=== PATIENT | female | born 1935 | race Caucasian/White ===

== ENCOUNTER 2016-08-17 14:47 | Inpatient (IN) | payer OTHER, MEDICARE ==
[~2016-08-17] VITALS: Ht 154.9 cm; Wt 79.4 kg
[~2016-08-17 14:47] MED LIST: ACETAMINOPHEN/H1 TAB PO; DOCUSATE SODIU100 M3 PO; LEXAPRO10 M1 PO; LIDOCAINE HCL V15 ML PO; NYSTATIN15 G1 TOP; OMEPRAZOLE D/R20 MG PO; OMEPRAZOLE40 MG PO; PREVACID30 M2 PO; PRILOSEC 20MG C20 MG PO; PRILOSEC40 MG PO; ROZEREM8 M1 PO; SLEEP AID25 M2 PO; SYNTHROID50 MCG PO; TRAMADOL HCL50 M1 PO; TRAZODONE HCL50 M1 PO; VICODIN5-300 PO; VITAMIN D2000 UNIT PO; VYVANSE30 M1 PO; XANAX0.25 M1 PO
--- NOTE | 2016-08-17 15:15 | NUR ---
SHANNON WHITAKER PT.
--- NOTE | 2016-08-17 15:19 | NUR ---
81 YEAR OLD FEMALE BIBA FROM DOCTORS OFFICE FOLLOWING MECHANICAL FALL. PT A&OX3, REPORTS 10/10 PAIN TO LEFT WRIST THAT WAS SPLINTED BY ORTHOPEDIC OFFICE. PT ALOS PRESENTS WITH SMALL LAC TO LEFT FOREHEAD. BLEEDING CONTROLLED AT THIS TIME, DENIES BLOOD THINNERS OR LOC.
--- NOTE | 2016-08-17 15:21 | NUR ---
PT TO CAT SCAN VIA STRETCHER AT THIS TIME.
--- NOTE | 2016-08-17 15:21 | ED MVC/FALL/TRAUMA COMPLAINT ---
History of Present Illness General Chief Complaint: Fall Stated Complaint: BIBA WITH A FALL Source: patient Exam Limitations: no limitations Allergies Coded Allergies: diphenhydramine (HYPEREXCITABLE 08/17/16) Triage Nurses Notes Reviewed? yes HPI: This patient is a 81-year-old female who was brought into the emergency department today by ambulance from Dr. Armstrong's office where she was going to get a knee injection. She reported that her knees felt weak and she fell forward mechanically. This fall was unwitnessed. She reported that she landed on her left wrist and left hip. She reported that she didn't hit her head on the ground. She denied any loss of consciousness. She is reporting 10 out of 10 pain in her left wrist and is unable to move her fingers. She reported that she is having some pain in her left hip where she had a hip replacement, however reported that she is able to easily move her left hip. She is denying any head pain, visual changes, neck pain, chest pain, difficulty breathing, abdominal pain, nausea, or vomiting. (OUMAR SUMMERS,CHRIS) Reconcile Medications Cholecalciferol (Vitamin D3) (Vitamin D) 2,000 UNIT TABLET 1 TAB PO DAILY SUPPLEMENT (Reported) Lansoprazole (Prevacid) 30 MG TAB.RAP.DR 1 TAB PO DAILY GI (Reported) Lisinopril 5 MG TABLET 1 TAB PO DAILY BLOOD PRESSURE (Reported) Tramadol HCl 50 MG TABLET 1 TAB PO BIDP PRN PAIN (Reported) (REAGAN DUNCAN,JOSUE) Vital Signs & Intake/Output Vital Signs & Intake/Output Vital Signs Date Time Temp Pulse Resp B/P Pulse O2 O2 Flow FiO2 Ox Delivery Rate 08/19 0603 99.7 78 18 112/60 93 Room Air 08/18 2346 99.3 65 20 114/58 95 Room Air 08/18 1600 Room Air 08/18 1508 98.7 78 20 126/64 94 08/18 1051 98.2 68 20 154/74 94 Room Air 08/18 1041 68 154/74 ED Intake and Output 08/19 0000 08/18 1200 Intake Total 480 525 Output Total 300 600 Balance 180 -75 Intake, IV 525 Intake, Oral 480 0 Number 0 Bowel Movements Output, Urine 300 600 Patient 175 lb Weight Past History Travel History Traveled to [place] past 21 day No Medical History Any Pertinent Medical History? 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 FH: CHF (congestive heart failure) Hx Contributory? No (CHRIS OSEGUERA PA-C) Review of Systems Review of Systems Constitutional: Reports: no symptoms. Eyes: Reports: no symptoms. Ears, Nose, Throat, Mouth: Reports: no symptoms. Respiratory: Reports: no symptoms. Cardiovascular: Reports: no symptoms. Gastrointestinal/Abdominal: Reports: no symptoms. Genitourinary: Reports: no symptoms. Musculoskeletal: Reports: see HPI. Skin: Reports: no symptoms. Neurological/Psychological: Reports: no symptoms. All Other Systems: Reviewed and Negative (CHRIS OSEGUERA PA-C) Physical Exam Physical Exam General Appearance: well developed/nourished, no apparent distress, alert, awake Comments: Well-developed well-nourished person in no acute distress HEENT: Normal EENT exam, head normocephalic/atraumatic with no bony deformity/ possible skull, no tenderness to palpation over the scalp PERRLA bilaterally Neck: Supple, no lymphadenopathy. C-collar in place. No midline tenderness Back: Normal inspection Cardiovascular: Regular rate and rhythm with no murmurs, rubs, or gallops Respiratory: Chest nontender. No respiratory distress. Breath sounds clear to auscultation bilaterally Abdomen: Soft, nontender and nondistended Left upper extremity: No effusions or overlying erythema or ecchymosis to the joint spaces. Bony deformity noted to the wrist. No skin breakdown. Full passive range of motion at the digits. Limited active range of motion of the digits. Tenderness to palpation over the dorsum of the wrist. Capillary refill less than 2 seconds. Radial pulse 2+ Left lower extremity: No effusions overlying erythema or ecchymosis to the 90s. Full range of motion at the hip, knee, and ankle. No tenderness to palpation over the joint spaces were musculature. Dorsalis pedis and posterior tibialis pulses 2+ and strong Neuro: Alert oriented x3, cranial nerves II through XII grossly intact. Skin: No appreciable rash on exposed skin, skin is warm and dry. Psych: Mood and affect is normal Core Measures ACS in differential dx? No Severe Sepsis Present: No Septic Shock Present: No (OUMAR SUMMERS,CHRIS) Progress Differential Diagnosis: aoritic dissection, abd injury, C/T/L spine injury, ext injury, ICH, pelvis injury, pnemothorax, spinal cord injury Diagnostic Imaging: Viewed by Me: Radiology Read, CT Scan. Discussed w/RAD: Radiology Read, CT Scan. Radiology Impression: PATIENT: FEDERICO ANN PRESENT AGE: 81 PATIENT ACCOUNT NO: [id number] : 37 LOCATION: [facility] ([place] ORDERING PHYSICIAN: CHRIS OSEGUERA PA-C SERVICE DATE: 08/17/16 EXAM TYPE: CAT - CT CERV SPINE WO IV CONTRAST; CT HEAD WO IV CONTRAST EXAMINATION: CT HEAD WITHOUT CONTRAST CT CERVICAL SPINE WITHOUT CONTRAST CLINICAL INFORMATION: Fall. COMPARISON: None. TECHNIQUE: Contiguous axial imaging was performed from the skull base to vertex without intravenous administration of contrast. In addition, helical noncontrast CT imaging was acquired through the cervical spine and source images were reviewed along with axial reconstructions and sagittal and coronal MPRs. DLP: 939 mGy-cm FINDINGS: HEAD: There is no hemorrhage, edema, mass effect, hydrocephalus, extra-axial collection, evolving territorial infarct , or shift of the normally midline structures. There is mild generalized prominence of the ventricles, sulci, and extra-axial CSF spaces and mild to moderate scattered hypoattenuation in the periventricular, deep, and subcortical white matter compatible with chronic microangiopathy. No calvarial fractures. The imaged paranasal sinuses, mastoid air cells and middle ear cavities are clear. There is mild soft tissue thickening in the left frontal scalp with 2 small subcutaneous foci of air suggesting a laceration in this locale. The orbits are not ideally visualized due to motion at this level. CERVICAL SPINE: There is no evidence of fracture. There is no evidence of traumatic dislocation. The lateral masses of C1 and C2 articulate normally. The atlantooccipital articulations are maintained. There is no prevertebral soft tissue swelling. There is 1 to 2 mm of anterolisthesis of C2 on C3 which appears to be on a degenerative basis. There is also 2 to 3 mm of anterolisthesis of C7 on T1 which appears to be degenerative. There is slight offset of the spinolaminar line at the C5-C6 level, of uncertain significance. The intervertebral disc space at this level is moderately degenerated and there are endplate spurs and sclerosis. There is no evidence of intervertebral disc widening. Multilevel spondylosis is present at several levels with relative sparing of C2-C3 and C7-T1. There is multilevel mild canal stenosis without high-grade canal stenosis. Multilevel facet hypertrophy is visualized, asymmetric on the left at several levels. There are varying degrees of foraminal stenosis including mild foraminal stenosis on the left at C2-C3, bilaterally at C3-C4 on the left at C4-C5 and bilaterally at C6-C7. At C5-C6 there appears to be fairly high-grade right foraminal stenosis. No cervical adenopathy. The left lobe of the thyroid is not visualized, potentially surgically absent. There is slight nodular fullness in the lower pole of the right lobe, possibly a thyroid nodule. No upper mediastinal adenopathy. The visualized lung apices appear grossly clear. IMPRESSION: 1. No acute intracranial pathology. Mild generalized volume loss and mild to moderate chronic microangiopathy. Left frontal scalp laceration. 2. No CT evidence of acute cervical spine fracture or traumatic subluxation. No pre or paravertebral soft tissue swelling. Multilevel spondylosis with grade 1 degenerative anterolisthesis of C2 on C3 and C7 on T1. There is mild offset of the spinolaminar line at C5-C6, also suspected to be on a degenerative basis. DICTATED BY: BETSY MURO MD DATE/TIME DICTATED:08/17/161552 ACID CRANE OPERATOR:MORELIA DATE/TIME TRANSCRIBED:08/17/161552 CONFIDENTIAL, DO NOT COPY WITHOUT APPROPRIATE AUTHORIZATION. <Electronically signed in Other Vendor System> SIGNED BY: BETSY MURO MD 08/17/16 1609, PATIENT: FEDERICO ANN PRESENT AGE: 81 PATIENT ACCOUNT NO: [id number] : 37 LOCATION: [facility] ([place] ORDERING PHYSICIAN: CHRIS OSEGUERA PA-C SERVICE DATE: 08/17/16 EXAM TYPE: RAD - XRY-HIP 2-3 VIEWS, LEFT; XRY-WRIST COMPLETE -LEFT EXAMINATION: LEFT HIP AND LEFT WRIST CLINICAL INFORMATION: Fall with pain COMPARISON: Portable abdomen study of November 19, 2015 TECHNIQUE: AP pelvis and two- view left hip. Three-view left wrist. FINDINGS: AP film of the pelvis demonstrates severe degenerative change of the lower lumbar spine. No definite diastases of the fracture is seen. Patient is status post left total hip arthroplasty. There is a comminuted fracture involving the greater trochanter with approximately 4 mm of superior displacement of the trochanteric fracture fragment. Medullary aixa portion of the prosthesis is intact and in place. No dislocation of the total hip prosthesis is identified. There are comminuted displaced fractures of the distal left radius and ulna. The radial fracture is intra-articular with displacement of the distal fracture fragments dorsally by approximately 1.5 cm and with overriding of the fracture fragments of approximately 1.2 cm. The distal ulnar fracture is intra-articular with displacement of fracture fragments dorsally as well as overriding of fracture fragments by approximately 1 cm with lateral displacement of the ulna styloid fracture fragment. IMPRESSION: Comminuted, displaced, intra-articular fractures of the distal left radius and ulnar as described. Left proximal femoral greater trochanter fracture without evidence of dislocation of left total hip arthroplasty. DICTATED BY: LASHAWN WASHINGTON MD DATE/TIME DICTATED:08/17/161709 ACID CRANE OPERATOR:MORELIA DATE/TIME TRANSCRIBED:08/17/161709 CONFIDENTIAL, DO NOT COPY WITHOUT APPROPRIATE AUTHORIZATION. <Electronically signed in Other Vendor System> SIGNED BY: LASHAWN WASHINGTON MD 08/17/161749, PATIENT: FEDERICO ANN PRESENT AGE: 81 PATIENT ACCOUNT NO: [id number] : 37 LOCATION: [facility] ([place] ORDERING PHYSICIAN: CHRIS OSEGUERA PA-C SERVICE DATE: 08/17/16 EXAM TYPE: RAD - XRY-WRIST COMPLETE-LEFT EXAMINATION : XR WRIST, LEFT CLINICAL INFORMATION: Wrist fracture. COMPARISON: Original presentation film at 4:18 PM today. Follow-up examination at 6:45 PM in a splint. TECHNIQUE: AP, lateral, and oblique views of the left wrist in a splint FINDINGS: Reexamination shows posterior displacement of the distal radial fragment one shaft width. There is also some overriding at the fracture site. There is less radial displacement of the distal radial fragment. The ulnar fracture is difficult to assess. IMPRESSION: Further reduction in the fractures involving the distal aspects of the left radius and ulna. DICTATED BY: OLIVIER CASTRO MD DATE/TIME DICTATED:08/17/162129 ACID CRANE OPERATOR:MORELIA DATE/ TIME TRANSCRIBED:08/17/162129 CONFIDENTIAL, DO NOT COPY WITHOUT APPROPRIATE AUTHORIZATION. <Electronically signed in Other Vendor System> SIGNED BY: OLIVIER CASTRO MD 08/17/162137 Initial ED EKG: normal axis, normal intervals, LBBB, no ST T wave changes, 67 bpm Comments: 08/17/2016 4:23:53 PM: I received a call from on-call orthopedist, Dr. Justice. She reported that she saw the image that was taken at Dr. Armstrong's office, but reported that the brace was still on and it was not a very good image. She also reported that he did not reduce it for sending her to the ER. She reported that if need be, she can come in and reduce the wrist herself. 08/17/2016 6:12:20 PM: Spencer Garvin MD is currently at the patient's bedside for reduction of the patient's wrist fracture. 08/17/2016 7:00:49 PM: Spencer Gravin MD reported that the reduction was not completely successful. He reported that Dr. Justice is going to come in to try the reduction again, but this patient may need to go to the operating room for pins. 08/17/2016 7:48:27 PM: Orthopedist, Dr. Justice, is currently at the patient's bedside. She is going to try traction for manual reduction. I spoke to on-call hospitalist, Dr. Ogden who reported that she will consult on this patient that there is no medical reason for admission to medicine. (OUMAR SUMMERS,CHRIS) Plan of Care: Orders Procedure Date/time Status Device(s) 08/19 0055 Active Regular Diet 08/18 L Active Activity/Ambulation 08/18 UNK Active Current Medications Sig/Azar Start time Last Medication Dose Stop Time Status Admin Morphine Sulfate 2 MG Q4P PRN 08/170 AC (Morphine) Ondansetron HCl 4 MG Q6P PRN 08/170 AC (Zofran) Departure Departure Disposition: STILL A PATIENT Condition: Stable Clinical Impression Primary Impression: Radius fracture Qualifiers: Encounter type: initial encounter Radius location: distal Fracture type: closed Fracture morphology: unspecified fracture morphology Laterality: left Qualified Code: S52.502A - Unspecified fracture of the lower end of left radius, initial encounter for closed fracture Secondary Impressions: Greater trochanter fracture Qualifiers: Encounter type: initial encounter Fracture type: closed Fracture alignment: nondisplaced Laterality: left Qualified Code: S72.115A - Nondisplaced fracture of greater trochanter of left femur, initial encounter for closed fracture Ulnar fracture Qualifiers: Encounter type: initial encounter Ulna location: distal Fracture type: closed Fracture morphology: unspecified fracture morphology Laterality: left Qualified Code: S52.602A - Unspecified fracture of lower end of left ulna, initial encounter for closed fracture Referrals: GERDA HOOD MD (PCP/Family) Departure Forms: Customer Survey General Discharge Information Admission Note Spoke With: RACHEL JUSTICE MD Documentation of Exam: Documentation of any treatments & extenuating circumstances including Concerns Regarding Discharge (functional status, medication knowledge or non-compliance, living conditions, etc.) that warrant an admission rather than observation: [ This patient is a 81 year old female who lives at home alone with no assistance. She has had two prior total hip replacements and today, before she fell, was in her orthopedist's office for an injection in her knee. Her history of having weakness in her knees is what precipitated her fall today. With this history of gait instability, it would be a poor medical decision to send this patient home with a new right wrist fracture and new greater trochanter fracture. She has been unable to tolerate weight-bearing here in the emergency department and would be unable to abmbulate with a walker given her current wrist fracture. She will be unable to perform basic ADLs at this time and does not have help at home. She will need an orthopedic consult, possible MRI of the hip, pain management, PT consultation, case management consultation, fall percautions. In current condition, she is unsafe at home. Premature discharge could prove medically harmful.] (OUMAR SUMMERS,CHRIS) PA/HAT BLOCKING OPERATOR Co-Sign Statement Statement: ED Attending supervision documentation- [X] I saw and evaluated the patient. I have also reviewed all the pertinent lab results and diagnostic results. I agree with the findings and the plan of care as documented in the PA's/HAT BLOCKING OPERATOR's documentation. [X] I have reviewed the ED Record and agree with the PA's/HAT BLOCKING OPERATOR's documentation. [] Additions or exceptions (if any) to the PAs/HAT BLOCKING OPERATOR's note and plan are summarized below: [] (REAGAN DUNCAN,JOSUE) PA/HAT BLOCKING OPERATOR Co-Sign Statement Statement: ED Attending supervision documentation- [] I saw and evaluated the patient. I have also reviewed all the pertinent lab results and diagnostic results. I agree with the findings and the plan of care as documented in the PA's/HAT BLOCKING OPERATOR's documentation. [x] I have reviewed the ED Record and agree with the PA's/HAT BLOCKING OPERATOR's documentation. [] Additions or exceptions (if any) to the PAs/HAT BLOCKING OPERATOR's note and plan are summarized below: [] (LUIS ENRIQUE DUNCAN,ROSEANNE Dimas) Procedures Splinting Location: left wrist Manual Alignment Performed: Yes Hand-Made Type: orthoglass Splint: sugar-tong Splint Applied By: splint applied by other (dr garvin) Pre-Proc Neuro Vasc Exam: normal Post-Proc Neuro Vasc Exam: normal Progress: I assisted Dr. Garvin in manual reduction. Patient tolerated the procedure well. (OUMAR SUMMERS,CHRIS) General Discharge Information Admission Note Spoke With: RACHEL JUSTICE MD Documentation of Exam: Documentation of any treatments & extenuating circumstances including Concerns Regarding Discharge (functional status, medication knowledge or non-compliance, living conditions, etc.) that warrant an admission rather than observation: [ This patient is a 81 year old female who lives at home alone with no assistance. She has had two prior total hip replacements and today, before she fell, was in her orthopedist's office for an injection in her knee. Her history of having weakness in her knees is what precipitated her fall today. With this history of gait instability, it would be a poor medical decision to send this patient home with a new right wrist fracture and new greater trochanter fracture. She has been unable to tolerate weight-bearing here in the emergency department and would be unable to abmbulate with a walker given her current wrist fracture. She will be unable to perform basic ADLs at this time and does not have help at home. She will need an orthopedic consult, possible MRI of the hip, pain management, PT consultation, case management consultation, fall percautions. In current condition, she is unsafe at home. Premature discharge could prove medically harmful.] (CHRIS OSEGUERA PA-C) PA/HAT BLOCKING OPERATOR Co-Sign Statement Statement: ED Attending supervision documentation- [X] I saw and evaluated the patient. I have also reviewed all the pertinent lab results and diagnostic results. I agree with the findings and the plan of care as documented in the PA's/HAT BLOCKING OPERATOR's documentation. [X] I have reviewed the ED Record and agree with the PA's/HAT BLOCKING OPERATOR's documentation. [] Additions or exceptions (if any) to the PAs/HAT BLOCKING OPERATOR's note and plan are summarized below: [] (REAGAN DUNCAN,JOSUE) PA/HAT BLOCKING OPERATOR Co-Sign Statement Statement: ED Attending supervision documentation- [] I saw and evaluated the patient. I have also reviewed all the pertinent lab results and diagnostic results. I agree with the findings and the plan of care as documented in the PA's/HAT BLOCKING OPERATOR's documentation. [x] I have reviewed the ED Record and agree with the PA's/HAT BLOCKING OPERATOR's documentation. [] Additions or exceptions (if any) to the PAs/HAT BLOCKING OPERATOR's note and plan are summarized below: [] (LUIS ENRIQUE DUNCAN,ROSEANNE Dimas) Procedures Splinting Location: left wrist Manual Alignment Performed: Yes Hand-Made Type: orthoglass Splint: sugar-tong Splint Applied By: splint applied by other (dr garvin) Pre-Proc Neuro Vasc Exam: normal Post-Proc Neuro Vasc Exam: normal Progress: I assisted Dr. Garvin in manual reduction. Patient tolerated the procedure well. (CHRIS OSEGUERA PA-C)
--- NOTE | 2016-08-17 15:57 | NUR ---
PT CRYING REPORTSING INCREASE IN PAIN TO LEFT WRIST. IV PLACED TO RIGHT HAND AND MEDICATED WITH MORPHINE 2MG PER EMAR. PT CRYING AND MOANING OUT IN PAIN. THERAPEUTIC COMMUNICATION AT THIS TIME TO ENCOURAGE PT TO SLOW BREATHING AND RELAX SO PAIN MEDICATION CAN BE MOST EFFECTIVE. PT ABLE TO CALM DOWN, ICE PACK PROVIDED AND PT WRIST ELEVATED ON BLANKETS FOR COMFORT. SPLINT FROM ARRICAL REMAINS IN PLACE.
--- NOTE | 2016-08-17 16:09 | CT SCAN REPORT ---
EXAMINATION: CT HEAD WITHOUT CONTRAST CT CERVICAL SPINE WITHOUT CONTRAST CLINICAL INFORMATION: Fall. COMPARISON: None. TECHNIQUE: Contiguous axial imaging was performed from the skull base to vertex without intravenous administration of contrast. In addition, helical noncontrast CT imaging was acquired through the cervical spine and source images were reviewed along with axial reconstructions and sagittal and coronal MPRs. DLP: 939 mGy-cm FINDINGS: HEAD: There is no hemorrhage, edema, mass effect, hydrocephalus, extra-axial collection, evolving territorial infarct, or shift of the normally midline structures. There is mild generalized prominence of the ventricles, sulci, and extra-axial CSF spaces and mild to moderate scattered hypoattenuation in the periventricular, deep, and subcortical white matter compatible with chronic microangiopathy. No calvarial fractures. The imaged paranasal sinuses, mastoid air cells and middle ear cavities are clear. There is mild soft tissue thickening in the left frontal scalp with 2 small subcutaneous foci of air suggesting a laceration in this locale. The orbits are not ideally visualized due to motion at this level. CERVICAL SPINE: There is no evidence of fracture. There is no evidence of traumatic dislocation. The lateral masses of C1 and C2 articulate normally. The atlantooccipital articulations are maintained. There is no prevertebral soft tissue swelling. There is 1 to 2 mm of anterolisthesis of C2 on C3 which appears to be on a degenerative basis. There is also 2 to 3 mm of anterolisthesis of C7 on T1 which appears to be degenerative. There is slight offset of the spinolaminar line at the C5-C6 level, of uncertain significance. The intervertebral disc space at this level is moderately degenerated and there are endplate spurs and sclerosis. There is no evidence of intervertebral disc widening. Multilevel spondylosis is present at several levels with relative sparing of C2-C3 and C7-T1. There is multilevel mild canal stenosis without high-grade canal stenosis. Multilevel facet hypertrophy is visualized, asymmetric on the left at several levels. There are varying degrees of foraminal stenosis including mild foraminal stenosis on the left at C2-C3, bilaterally at C3-C4 on the left at C4-C5 and bilaterally at C6-C7. At C5-C6 there appears to be fairly high-grade right foraminal stenosis. No cervical adenopathy. The left lobe of the thyroid is not visualized, potentially surgically absent. There is slight nodular fullness in the lower pole of the right lobe, possibly a thyroid nodule. No upper mediastinal adenopathy. The visualized lung apices appear grossly clear. IMPRESSION: 1. No acute intracranial pathology. Mild generalized volume loss and mild to moderate chronic microangiopathy. Left frontal scalp laceration. 2. No CT evidence of acute cervical spine fracture or traumatic subluxation. No pre or paravertebral soft tissue swelling. Multilevel spondylosis with grade 1 degenerative anterolisthesis of C2 on C3 and C7 on T1. There is mild offset of the spinolaminar line at C5-C6, also suspected to be on a degenerative basis.
--- NOTE | 2016-08-17 16:19 | NUR ---
CERVICAL COLLAR REMOVED BY SHANNON OSEGUERA AT THIS TIME. PT REPORTS RELIEF IN PAIN, RESTING COMFORTABLY ON STRETCHER.
--- NOTE | 2016-08-17 17:16 | NUR ---
PT REPORTS INCREASE IN PAIN, MEDICATED PER EMAR.
--- NOTE | 2016-08-17 17:50 | RADIOLOGY REPORT ---
EXAMINATION: LEFT HIP AND LEFT WRIST CLINICAL INFORMATION: Fall with pain COMPARISON: Portable abdomen study of November 19, 2015 TECHNIQUE: AP pelvis and two-view left hip. Three-view left wrist. FINDINGS: AP film of the pelvis demonstrates severe degenerative change of the lower lumbar spine. No definite diastases of the fracture is seen. Patient is status post left total hip arthroplasty. There is a comminuted fracture involving the greater trochanter with approximately 4 mm of superior displacement of the trochanteric fracture fragment. Medullary aixa portion of the prosthesis is intact and in place. No dislocation of the total hip prosthesis is identified. There are comminuted displaced fractures of the distal left radius and ulna. The radial fracture is intra-articular with displacement of the distal fracture fragments dorsally by approximately 1.5 cm and with overriding of the fracture fragments of approximately 1.2 cm. The distal ulnar fracture is intra-articular with displacement of fracture fragments dorsally as well as overriding of fracture fragments by approximately 1 cm with lateral displacement of the ulna styloid fracture fragment. IMPRESSION: Comminuted, displaced, intra-articular fractures of the distal left radius and ulnar as described. Left proximal femoral greater trochanter fracture without evidence of dislocation of left total hip arthroplasty.
--- NOTE | 2016-08-17 18:54 | NUR ---
DR. SONG TO BEDSIDE FOR CLOSED REDUCTION.
--- NOTE | 2016-08-17 19:32 | RADIOLOGY REPORT ---
EXAMINATION: 3 views of the left wrist CLINICAL INFORMATION: Status post reduction. COMPARISON: Left wrist radiographs from 08/17/2016. FINDINGS: Interval splint placement. Redemonstration of comminuted intra-articular fractures of the distal radius and ulna. On the lateral view there is similar significant dorsal displacement of the distal intra-articular fracture fragments with relation to the remaining radius and ulna by approximately a shaft width. Proximal migration of the proximal radius and ulna which now closely oppose the level of the lunate on the lateral view. On the frontal view there is new severe radial displacement of the distal intra-articular fracture fragments with respect to the more proximal ulna and radius by approximately the shaft width. IMPRESSION: Interval splint placement in the setting of comminuted intra-articular fractures of the distal radius and ulna. New significant radial displacement of the distal intra-articular fracture fragments, similar dorsal displacement of the distal intra-articular fracture fragments, and worsening proximal migration of the proximal fracture fragments with associated overriding.
--- NOTE | 2016-08-17 19:54 | NUR ---
DR. JUSTICE TO BEDSIDE FOR EVAL.
--- NOTE | 2016-08-17 21:13 | NUR ---
DR. JUSTICE TO BEDSIDE TO DISCUSS RESULTS FROM MOST RECENT X-RAY. PT VERBALIZES UNDERSTANDING THAT SHE WILL BE ADMITTED TO [facility] WITH PLAN TO GO TO THE OR TOMORROW.
--- NOTE | 2016-08-17 21:30 | NUR ---
BLOOD DRAWN AND SENT TO LAB. SST,LAV,POOLE,BLUE,PINK. URINE SENT TO LAB.
--- NOTE | 2016-08-17 21:38 | RADIOLOGY REPORT ---
EXAMINATION: XR WRIST, LEFT CLINICAL INFORMATION: Wrist fracture. COMPARISON: Original presentation film at 4:18 PM today. Follow-up examination at 6:45 PM in a splint. TECHNIQUE: AP, lateral, and oblique views of the left wrist in a splint FINDINGS: Reexamination shows posterior displacement of the distal radial fragment one shaft width. There is also some overriding at the fracture site. There is less radial displacement of the distal radial fragment. The ulnar fracture is difficult to assess. IMPRESSION: Further reduction in the fractures involving the distal aspects of the left radius and ulna.
[2016-08-17 21:39] LABS: ABSOLUTE BASOPHIL COUNT 0.1 /CUMM (0.0-0.2); ABSOLUTE EOSINOPHIL COUNT 0.3 /CUMM (0.0-0.7); ABSOLUTE GRANULOCYTE CT 9.5 /CUMM (1.4-6.5); ABSOLUTE LYMPH COUNT 2.3 /CUMM (1.2-3.4); ABSOLUTE MONOCYTE COUNT 0.8 /CUMM (0.10-0.60); BASOPHIL % 0.5 % (0.0-2.0); EOSINOPHIL % 2.3 % (0-5); GRANULOCYTE % 73.6 % (42.2-75.2); HEMATOCRIT 38.1 % (37-47); MEAN CORPUSCULAR HGB CONC 33.4 G/DL (33.0-37.0); MEAN CORPUSCULAR VOLUME 92.7 FL (81.0-99.0); MEAN PLATELET VOLUME 8.5 FL (7.4-10.4); PLATELET COUNT 239 /CUMM (130-400); RBC DISTRIBUTION WIDTH 14.4 % (11.5-14.5); RED BLOOD CELL CT 4.12 /CUMM (4.20-5.40); WHITE BLOOD CELL COUNT 12.9 /CUMM (4.8-10.8)
--- NOTE | 2016-08-17 22:02 | Cons- Medical ---
SCAR DUNCAN,KARLA 08/17/16 2159: General Information and HPI Consulting Request Date of Consult: 08/17/16 Requested By: Dr. Ritchie Reason for Consult: Medical condition co-management Source of Information: patient, old records History of Present Illness: 81 yo female with pmh of HTN, GERD, peptic ulcer disease, osteoarthritis, hypothyroidism, hx of gastric outlet obstruction s/p gastrojejunostomy (2015), hx of bowel perforation s/p exploratory laparotomy & Ricco patch/washout complicated with septic shock (2016) BIBA from Dr. Armstrong's office s/p mechanical fall. She had a corticosteroid injection on Rt. knee, then she felt weak falling down to Lt. wrist and Lt. hip. She denies any chest pain, palpitation, or dizziness related to fall. She denies any head trauma or loss of consciousness. In ED, she was found to have communited, displaced, intra- articular fracutres of distal Lt. radius/ulnar & Lt. proximal femoral fracutre without evidence of dislocation of Lt. total hip arthroplasty. Closed reduction for Lt. radius & ulnar was attempted by Dr. Garvin and Dr. Ritchie. After IV morphine, her pain was decreased, and she now has dull aching pain on Lt. wrist. She c/o Lt. leg muscle pain. Regarding HTN, she takes lisinopril 5mg daily. Her last echocardiogram on showed normal EF > 60% with stage 1 diastolic dysfuction. She doens't take any po lasix which was discontiued by storage specialist (Dr. Soriano). She had two 3mm lung nodues in Rt. lung (02/21/16), and she'll follow Dr. Shipman in 1 year. She didn't take levothyroxine, as her last TSH/fT4 were normal. She follows Dr. Armstrong for osteoarthritis/corticosteroid injection. She doesn't take xanax or lexapro for depression currently. Allergies/Medications Allergies: Coded Allergies: diphenhydramine (HYPEREXCITABLE 08/17/16) Home Med List: Cholecalciferol (Vitamin D3) (Vitamin D) 2,000 UNIT TABLET 1 TAB PO DAILY SUPPLEMENT (Reported) Lansoprazole (Prevacid) 30 MG TAB.RAP.DR 1 TAB PO DAILY GI (Reported) Lisinopril 5 MG TABLET 1 TAB PO DAILY BLOOD PRESSURE (Reported) Tramadol HCl 50 MG TABLET 1 TAB PO BIDP PRN PAIN (Reported) Current Medications: Current Medications Sig/Azar Start time Last Medication Dose Route Stop Time Status Admin Cholecalciferol 1,000 IU DAILY 08/18 1000 UNVr PO Dextrose/Sodium 1,000 ML Q13H 08/17 2300 UNVr Chloride IV Lidocaine 20 ML ONCE ONE 08/17 1815 DC 08/17 ID 08/17 181 1822 Lidocaine 0 .STK-MED ONE 08/17 181 DC .ROUTE Morphine Sulfate 0 .STK-MED ONE 08/17 231 DC .ROUTE Morphine Sulfate 2 MG Q4P PRN 08/17 230 UNVr IV Morphine Sulfate 4 MG ONCE PRN 08/17 230 UNVr 08/17 IV 2318 Morphine Sulfate 2 MG ONCE ONE 08/17 2030 DC 08/17 IV 08/17 Morphine Sulfate 0 .STK-MED ONE 08/17 2022 DC .ROUTE Morphine Sulfate 2 MG ONCE ONE 08/17 1715 DC 08/17 IV 08/17 1716 1715 Morphine Sulfate 0 .STK-MED ONE 08/17 1712 DC .ROUTE Morphine Sulfate 2 MG ONCE ONE 08/17 1600 CAN IM 08/17 1601 Morphine Sulfate 2 MG ONCE ONE 08/17 1600 DC 08/17 IV 08/17 1601 1600 Morphine Sulfate 0 .STK-MED ONE 08/17 1556 DC .ROUTE Omeprazole 40 MG DAILY AC 08/18 0700 UNVr PO Ondansetron HCl 4 MG Q6P PRN 08/17 2300 UNVr IV Oxycodone/ 0 .STK-MED ONE 08/17 1516 DC Acetaminophen PO Oxycodone/ 1 TAB ONCE ONE 08/17 1515 DC 08/17 Acetaminophen PO 08/17 1516 1514 Tetanus/Diphtheria 0.5 ML ONCE ONE 08/17 1845 DC 08/17 Toxoids Adsorbed IM 08/17 1846 2318 Tramadol HCl 50 MG .[BIDP] PRN 08/17 2215 UNVr PO Tramadol HCl 0 .STK-MED ONE 08/17 1511 DC PO Tramadol HCl 50 MG ONCE ONE 08/17 1500 CAN PO 08/17 1501 Trazodone HCl See Dose AT BEDTIME PRN 08/17 2230 UNVr Insts (1) PO Dose Instructions: (1)Trazodone HCl: 1-2 MG Review of Systems Review of Systems Constitutional: Denies: chills, fever, weakness. EENTM: Denies: blurred vision, visual changes, throat pain. Cardiovascular: Denies: chest pain, palpitations, peripheral edema, syncope. Respiratory: Denies: cough, short of breath, sputum production, wheezing. GI: Denies: abdominal pain, constipation, diarrhea, nausea, vomiting. Genitourinary: Reports: no symptoms. Musculoskeletal: Reports: see HPI, joint pain, muscle pain. Skin: Reports: no symptoms. Neurological/Psychological: Denies: anxiety, depressed, headache, numbness, tingling, weakness. Hematologic/Endocrine: Reports: no symptoms. Immunologic/Allergic: Reports: no symptoms. 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 FH: CHF (congestive heart failure) Psychosocial History Services at Home: None Primary Language: [place] Islander Functional Ability ADLs Independent: dressing, eating, toileting, bathing. Ambulation: independent IADLs Independent: housework, medication admin. ECHO Results (as available) Date of last Echo 10/16/15 EF% 60 Exam & Diagnostic Data Last 24 Hrs of Vital Signs/I&O Vital Signs Date Time Temp Pulse Resp B/P Pulse O2 O2 Flow FiO2 Ox Delivery Rate 08/17 2228 97.8 68 18 162/84 96 Room Air 08/17 1849 97.5 75 18 153/78 97 08/17 1516 98.7 61 63 157/70 95 Physical Exam General Appearance: no apparent distress, alert, awake, comfortable Head: blood streak on lip Eyes: Bilateral: normal appearance, PERRL, EOMI. Ears, Nose, Throat: normal pharynx, hearing grossly normal, dry mouth Neck: supple, full range of motion Respiratory: normal breath sounds, no respiratory distress, lungs clear Cardiovascular: regular rate/rhythm Extremities: limited range of motion, s/p Lt. arm splint Neurologic/Psych: awake, alert, oriented x 3 Cranial Nerves: normal hearing, normal speech, PERRL Skin: intact, normal color, warm/dry Last 24 Hrs of Labs/Giovanni: Laboratory Tests 08/17/16 2126: Anion Gap 8, Estimated GFR > 60, BUN/Creatinine Ratio 54.0 H, Glucose 96, Calcium 9.5, Total Bilirubin 0.7, AST 18, ALT 26, Alkaline Phosphatase 119, Troponin I < 0.01, Total Protein 6.0 L, Albumin 3.5, Globulin 2.5, Albumin/ Globulin Ratio 1.4, TSH 2.150, Free T4 1.03, CBC w Diff NO MAN DIFF REQ, RBC 4.12 L, MCV 92.7, MCH 31.0, RDW 14.4, MPV 8.5, Gran % 73.6, Lymphocytes % 17.5 L, Monocytes % 6.1, Eosinophils % 2.3, Basophils % 0.5, Absolute Granulocytes 9.5 H, Absolute Lymphocytes 2.3, Absolute Monocytes 0.8 H, Absolute Eosinophils 0.3, Absolute Basophils 0.1, PUBS MCHC 33.4, Urine Color YEL, Urine Clarity HAZY H, Urine pH 6.0, Ur Specific Freeland 1.025, Urine Protein NEG, Urine Ketones NEG, Urine Nitrite POS H, Urine Bilirubin NEG, Urine Urobilinogen 0.2, Ur Leukocyte Esterase NEG, Ur Microscopic SEDIMENT EXAMINED, Urine WBC 1-3 H, Ur Epithelial Cells FEW, Urine Bacteria PACKD H, Urine Mucus FEW, Urine Hemoglobin NEG, Urine Glucose NEG Diagnostic Data EKG Results Sinus rhythm, LAD, 1st degree AV block, QTc 503, old LBBB CXR Results No acute abnormality of chest. Other Results Head/cervical spine CT: 1. No acute intracranial pathology. Mild generalized volume loss and mild to moderate chronic microangiopathy. Left frontal scalp laceration. 2. No CT evidence of acute cervical spine fracture or traumatic subluxation. No pre or paravertebral soft tissue swelling. Multilevel spondylosis with grade 1 degenerative anterolisthesis of C2 on C3 and C7 on T1. There is mild offset of the spinolaminar line at C5-C6, also suspected to be on a degenerative basis. Lt. wrist x-ray: Comminuted, displaced, intra-articular fractures of the distal left radius and ulnar as described. Lt. hip x-ray: Left proximal femoral greater trochanter fracture without evidence of dislocation of left total hip arthroplasty. Assessment/Plan Assessment/Plan 81 yo female with pmh of HTN, GERD, peptic ulcer disease, osteoarthritis, hypothyroidism, hx of gastric outlet obstruction s/p gastrojejunostomy (2015), hx of bowel perforation s/p exploratory laparotomy & Ricco patch/washout complicated with septic shock (2016) presented with Lt. radius/ulnar & Lt. proximal femoral fracutre s/p mechanical fall. 1. Lt. radius/ulnar & Lt. proximal femoral fracutre s/p mechanical fall: Pt is planned to get Lt. radius/ulnar closed reduction per orthopedic surgery in am. Lt. proximal femoral fracutre will be managed conservatively without surgery. RCRI score is 0 with 0.4% perioperative cardiac risk. NPO after MN, continue IV hydration/pain control. Dr. Alcantar spoke with Dr. Vernon regarding pulmonary evaluation. There is no need for pre-op pulmonary evaluation, and CXR was not remarkable. If pt needs post-operative management, please contact Dr. Vernon. 2. HTN: c/w lisinopril 5mg daily 3. GERD: c/w omeprazole, GI ppx. 4. Hypothyroidism: TSH/fT4 within normal limit. continue hold levothyroxine. 5. Hx of Fall: avoid fall risk, PT/OT. 6. Depression/anxiety: pt doesn't take home medication currently. 7. Lung nodules: follow up Dr. Shipman as outpatient. DVT ppx: Alps now, SC heparin or lovenox postop. Pt is full code. Pain pathway pre/post operatively. Problem List: 1. Radius fracture 2. Ulnar fracture 3. Greater trochanter fracture 4. Hypertension 5. GERD (gastroesophageal reflux disease) Copies To: BRITTANIE DUNCAN,Danny VELÁZQUEZ; VINH DUNCAN,RACHEL; SANA DUNCAN,GERDA Montoya; LINNEA DUNCAN, KOJO SORIANO MD PhD,GERDA Rene; JORDI DUNCAN,AGUILA Consult Acknowledgment - Thank you for your consult request. LINNEA DUNCAN, JAMAAL 08/18/16 0215: Assessment/Plan Consult Acknowledgment - Thank you for your consult request. Attending MD Review Statement Attending Statement Attending MD Statement: examined this patient, discuss w/resident/PA/DRUM CLEANER, agreed w/resident/PA/DRUM CLEANER Attending Assessment/Plan: 81 yo F with h/o HTN, GERD, PUD, OA, gastrojejunostomy for gastric outlet obstruction, with an extensive hospitalization at [place] (10/15/15 11/23/15) for bowel perforation/ septic shock c/b respiratory failure/ ARDS requiring prolonged intubation with subsequent tracheostomy, is here s/p mechanical fall at Dr. Armstrong's office where she was scheduled for cortisone injection to her right knee. She sustained a left comminuted displaced distal radio-ulnar fracture and left minimally displaced greater trochanter fracture. Patient underwent 2 attempts at closed reduction at the bedside, but still not aligned. Plan is for closed reduction, possible percutaneous fixation of the distal radius fracture. Medicine consult is being sought for pre-op clearance and medical co-management. Patient has not followed with Dr. Soriano for a nuclear stress test - given family h/o premature coronary artery disease in her father and chronic LBBB on EKG. Patient currently denies chest pain, dyspnea, palpitations or lightheadedness. Patient also follows Dr. Shipman for evidence of lung nodules and groundglass opacities which seem to be improving. VSS. Labs: WBC 12.9, INR 1.01, BUN 27, trop neg, TSH/ free T4 normal. UA positive. EKG: SR with chronic LBBB. CT head/cervical spine neg. Echo (October 2015): EF >60% with stage 1 diastolic dysfunction. 1. Mechanical fall with resultant left wrist and hip fracture. Patient admitted to Surgical service. Plan is for closed reduction, possible percutaneous fixation of the distal radius fracture in the OR under adequate analgesia. NPO after midnight, IV fluids, pain management. Based on RCRI, she has no risk factors (no h/o ischemic heart disease, CHF, CVA, DM or CKD) placing her at 0.4% risk of significant cardiac event jasbir-operatively. It would be reasonable to proceed to the OR if the above risk is acceptable to the patient and surgeon. I spoke with Dr. Vernon (covering [employer]), who reviewed patient's CT scan and outpatient office visit with Dr. Shipman. CXR today does not show any acute changes. No pre-op Pulmonary eval required at this point. Above has been discussed overnight with Surgical PA Jennie Haney. If any concerns regarding respiratory status post-operatively, plan is to contact Dr. Vernon; otherwise if patient stable she could follow up with Dr. Shipman as outpatient. For the left hip fracture, plan is pain management and WBAT. Eventual PT/OT eval and possible placement. 2. Hypertension. Continue lisinopril daily. 3. GERD. Continue PPI. 4. Leukocytosis likely reactive. DVT ppx Alps, no heparin for now. Code status: This was discussed in depth with the patient. During the last admission (2015), she had expressed her wishes/ signed a statement for DNR/I. However, given that she got a second chance last year, she now wishes to be "Full code" unless she suffers an irreversible event then she wishes to be DNR/ I.
--- NOTE | 2016-08-17 22:05 | NUR ---
HOUSE STAFF AT BEDSIDE FOR PT EVALUATION
--- NOTE | 2016-08-17 22:59 | NUR ---
SURGICAL PA TO BEDSIDE FOR EVAL.
--- NOTE | 2016-08-17 23:29 | NUR ---
PT ATE SOME APPLESAUCE AND DRANK SOME WATER. PT AWARE OF NPO STATUS AT MIDNIGHT. IV FLUIDS D5 1/2 NS HUNG PER EMAR AT THIS TIME.
--- NOTE | 2016-08-17 23:43 | NUR ---
ASSUMED PRIMARY CARE OF PT. PT DENIES PAIN AT THIS TIME EXCEPT WITH MOVEMENT OF FINGERS ON L HAND. +CMS. SWELLING NOTED TO L FINGERS. PT DENIES NUMBNESS/TINGLING. DAUGHTER AT BEDSIDE. INFORMED WAITING REGARDING ADMISSION PROCESS PROVIDED.
--- NOTE | 2016-08-18 | History & Physical Pre-Op ---
See Addendum MARK ORTEGASYLVIA 08/17/16 3747: General Information and HPI MD Statement: I have seen and personally examined FEDERICO ANN and documented this H&P. The patient is a 81 year old F who presented with a patient stated chief complaint of FALL. 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 Pt states that she was scheduled for a steroid injection by Dr. Armstrong in her R knee today. On her way into the exam room, she lost her balance and fell to the floor. She states that Dr. Armstrong's medical sales representative was nearby and that she recalls the entire event. She c/o R wrist pain and had an obvious deformity. She also suffered a minor superficial laceration of the L frontal scalp, which did not require repair. Steroid injection was ultimately NOT performed today. She denies dizziness, chest pain, or other precipitating symptoms. She also denies LOC. Subsequent x-rays performed in the ED revealed a proximal L greater trochanter fracture and a comminuted, displaced distal radius/ulna fracture. The previous L total hip arthroplasty hardware was unaffected. Pt underwent 2 attempts at closed reduction at the bedside, with ultimate positioning still not completely ideal. At this time, she continues to complain only of L wrist pain. The wrist is splinted. She denies hip pain whatsoever. Allergies/Medications Allergies: Coded Allergies: diphenhydramine (HYPEREXCITABLE 08/17/16) Home Med list Cholecalciferol (Vitamin D3) (Vitamin D) 2,000 UNIT CAPSULE 1 CAP PO DAILY supplement Docusate Sodium 100 MG CAPSULE 10 MG PO BID PRN CONSTIPATION Lansoprazole (Prevacid) 30 MG TAB.RAP.DR 1 TAB PO DAILY GI (Reported) Levothyroxine Sodium (Synthroid) 50 MCG TABLET 0.05 MG PO DAILY AC HYPOTHYROID REPEAT TSH IN 7 IN WEEKS Tramadol HCl 50 MG TABLET 1 TAB PO BIDP PRN PAIN (Reported) Trazodone HCl 50 MG TABLET 1-2 MG PO AT BEDTIME PRN sleep (Reported) Past History Medical History Neurological: NONE EENT: cataracts Cardiovascular: hypertension Respiratory: NONE Gastrointestinal: GERD, peptic ulcer disease Hepatic: NONE Renal: NONE Musculoskeletal: osteoarthritis Psychiatric: NONE Endocrine: NONE Blood Disorders: NONE Cancer(s): NONE 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 , abdominoplasty, facelift Past Family/Social History Family History Relations & Conditions if any MOTHER FH: stomach cancer FATHER ([place] - age 53). FH: CHF (congestive heart failure) Psychosocial History Where Do You Live? Home Services at Home None Primary Language: [place] Citizen Review of Systems Review of Systems: Positive for L wrist pain. Negative for headache, dizziness, fever, chills, chest pain, shortness of breath , cough, congestion, abdominal pain, nausea, vomiting, diarrhea, constipation, dysuria. Exam & Diagnostic Data Last 24 Hrs of Vital Signs/I&O Vital Signs Date Time Temp Pulse Resp B/P Pulse O2 O2 Flow FiO2 Ox Delivery Rate 08/17 2228 97.8 68 18 162/84 96 Room Air 08/17 1849 97.5 75 18 153/78 97 08/17 1516 98.7 61 63 157/70 95 Physical Exam: General: Pt is awake and alert. NAD. HEENT: There is a 4 cm superficial laceration in the L frontal area, which contains a small amount of old, dry blood. No active bleeding or evidence of underlying soft tissue swelling. PERRLA. EOM's are intact. Tongue is midline. CN are grossly intact. Mouth and lips are dry and peeling. Cardiac: Regular Pulmonary: Lungs are CTA bilaterally. Abdomen: There is an old, well healed midline laparotomy incision and an old, well healed lower abdominoplasty incision. There is some weakness noted at the inferior aspect of the midline incision. No openings, erythema or drainage. Abdomen is moderately distended, but soft and nontender. Normoactive BS were heard. Ext: LUE is splinted. Fingers are swollen, as expected. She is able to move her fingers and sensation is intact. LE are warm and without significant edema or calf tenderness. 2+ pedal pulses appreciated. No tenderness noted in LE, including over greater trochanter. Last 24 Hrs of Labs/Giovanni: Laboratory Tests 08/17/162125: Anion Gap 8, Estimated GFR > 60, BUN/Creatinine Ratio 54.0 H, Glucose 96, Calcium 9.5, Total Bilirubin 0.7, AST 18, ALT 26, Alkaline Phosphatase 119, Troponin I < 0.01, Total Protein 6.0 L, Albumin 3.5, Globulin 2.5, Albumin/ Globulin Ratio 1.4, TSH 2.150, Free T4 1.03, CBC w Diff NO MAN DIFF REQ, RBC 4.12 L, MCV 92.7, MCH 31.0, RDW 14.4, MPV 8.5, Gran % 73.6, Lymphocytes % 17.5 L, Monocytes % 6.1, Eosinophils % 2.3, Basophils % 0.5, Absolute Granulocytes 9.5 H, Absolute Lymphocytes 2.3, Absolute Monocytes 0.8 H, Absolute Eosinophils 0.3, Absolute Basophils 0.1, PUBS MCHC 33.4, Urine Color YEL, Urine Clarity HAZY H, Urine pH 6.0, Ur Specific [place] 1.025, Urine Protein NEG, Urine Ketones NEG, Urine Nitrite POS H, Urine Bilirubin NEG, Urine Urobilinogen 0.2, Ur Leukocyte Esterase NEG, Ur Microscopic SEDIMENT EXAMINED, Urine WBC 1-3 H, Ur Epithelial Cells FEW, Urine Bacteria PACKD H, Urine Mucus FEW, Urine Hemoglobin NEG, Urine Glucose NEG Diagnostic Data Other Results CT scan of head and C-spine: 1. No acute intracranial pathology. Mild generalized volume loss and mild to moderate chronic microangiopathy. Left frontal scalp laceration. 2. No CT evidence of acute cervical spine fracture or traumatic subluxation. No pre or paravertebral soft tissue swelling. Multilevel spondylosis with grade 1 degenerative anterolisthesis of C2 on C3 and C7 on T1. There is mild offset of the spinolaminar line at C5-C6, also suspected to be on a degenerative basis. X-ray of the Hip and wrist upon admission: Comminuted, displaced, intra-articular fractures of the distal left radius and ulnar. Left proximal femoral greater trochanter fracture without evidence of dislocation of left total hip arthroplasty. here is severe degenerative change of the first carpal metacarpal joint with loss of joint space, spurring with subchondral cyst formation, and what appears to be some mild collapse of the trapezium. Post reduction xray of L wrist: Interval splint placement in the setting of comminuted intra-articular fractures of the distal radius and ulna. New significant radial displacement of the distal intra-articular fracture fragments, similar dorsal displacement of the distal intra-articular fracture fragments, and worsening proximal migration of the proximal fracture fragments with associated overriding. Repeat post-reduction x-ray after 2nd reduction: Reexamination shows posterior displacement of the distal radial fragment one shaft width. There is also some overriding at the fracture site. There is less radial displacement of the distal radial fragment. The ulnar fracture is difficult to assess. 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 Plan: -Admit to Dr. Justice on gen med as medical team states that there are no acute medical issues. -Plan for possible closed reduction in the OR tomorrow morning. -Pt will be kept npo after midnight. OK to eat/drink something tonight before midnight. Will start IVF. -Pain control with morphine as needed. -PT/OT consult after the OR for discharge recommendations. She may weight bear as tolerated on the LLE. -Alps for DVT ppx. Hold anticoagulation for surgery (anticipated in less than 12 hours) and then will start SC heparin postop. -Home meds have been ordered by the medical team. -Awaiting clearance for OR, although verbal clearance from attending hospitalist has already been obtained. -This was discussed with the patient and with Dr. Justice and all are in agreement. -Of note, I had a lengthy discussion with the patient about her code status. She states that she has a living will that says DNR/DNI, but that she is grateful that her life was saved during her last admission. She wishes to keep her status DNR/DNI, stating that she does not want to live as "an invalid" if there is ever a chance of that. Other measures can be taken at saving her life if her condition appears to be reversible and not debilitating. As Ranked By This Provider Problem List: 1. Radius fracture 2. Ulnar fracture 3. Greater trochanter fracture RACHEL JUSTICE MD 08/17/16 0033: Attending MD Review Statement Attending Statement Attending MD Statement: examined this patient, discuss w/resident/PA/FIELD SALES SPECIALIST, agreed w/resident/PA/FIELD SALES SPECIALIST, discussed with family, reviewed images Attending Assessment/Plan: 81yo RHD female with left comminuted displaced distal radius fracture and left minimally displaced greater trochanter fracture adjacent to [place]. Plan for closed reduction and possible percutaneous stabilization vs open reduction and internal fixation of left distal radius in the OR as described. Plan for closed management of left greater trochanter periprosthetic fracture ( Kaycee A-G) with partial weight bearing and PT evaluation. Please see my prior consult note.
--- NOTE | 2016-08-18 | Admission Core Measures ---
Admission Lab Results I reviewed the following labs: Laboratory Tests 08/17 2125 Chemistry Sodium (137 - 145 mmol/L) 138 Potassium (3.5 - 5.1 mmol/L) 4.7 Chloride (98 - 107 mmol/L) 105 Carbon Dioxide (22 - 30 mmol/L) 24 Anion Gap (5 - 16) 8 BUN (7 - 17 mg/dL) 27 H Creatinine (0.5 - 1.0 mg/dL) 0.5 Estimated GFR (>60 ml/min) > 60 BUN/Creatinine Ratio (7 - 25 %) 54.0 H Glucose (65 - 99 mg/dL) 96 Calcium (8.4 - 10.2 mg/dL) 9.5 Total Bilirubin (0.2 - 1.3 mg/dL) 0.7 AST (14 - 36 U/L) 18 ALT (9 - 52 U/L) 26 Alkaline Phosphatase (<127 U/L) 119 Troponin I (< 0.11 ng/ml) < 0.01 Total Protein (6.3 - 8.2 g/dL) 6.0 L Albumin (3.5 - 5.0 g/dL) 3.5 Globulin (1.9 - 4.2 gm/dL) 2.5 Albumin/Globulin Ratio (1.1 - 2.2 %) 1.4 TSH (0.270 - 4.200 uIU/mL) 2.150 Free T4 (0.78 - 2.44 ng/dL) 1.03 Hematology CBC w Diff NO MAN DIFF REQ WBC (4.8 - 10.8 /CUMM) 12.9 H RBC (4.20 - 5.40 /CUMM) 4.12 L Hgb (12.0 - 16.0 G/DL) 12.8 Hct (37 - 47 %) 38.1 MCV (81.0 - 99.0 FL) 92.7 MCH (27.0 - 31.0 PG) 31.0 RDW (11.5 - 14.5 %) 14.4 Plt Count (130 - 400 /CUMM) 239 MPV (7.4 - 10.4 FL) 8.5 Gran % (42.2 - 75.2 %) 73.6 Lymphocytes % (20.5 - 51.1 %) 17.5 L Monocytes % (1.7 - 9.3 %) 6.1 Eosinophils % (0 - 5 %) 2.3 Basophils % (0.0 - 2.0 %) 0.5 Absolute Granulocytes (1.4 - 6.5 /CUMM) 9.5 H Absolute Lymphocytes (1.2 - 3.4 /CUMM) 2.3 Absolute Monocytes (0.10 - 0.60 /CUMM) 0.8 H Absolute Eosinophils (0.0 - 0.7 /CUMM) 0.3 Absolute Basophils (0.0 - 0.2 /CUMM) 0.1 PUBS MCHC (33.0 - 37.0 G/DL) 33.4 Urines Urine Color (YEL,AMB,STR) YEL Urine Clarity (CLEAR) HAZY H Urine pH (5.0 - 8.0) 6.0 Ur Specific [place] (1.001 - 1.035) 1.025 Urine Protein (NEG,<30 MG/DL) NEG Urine Ketones (NEG) NEG Urine Nitrite (NEG) POS H Urine Bilirubin (NEG) NEG Urine Urobilinogen (0.1 - 1.0 EU/dl) 0.2 Ur Leukocyte Esterase (NEG) NEG Ur Microscopic SEDIMENT EXAMINED Urine WBC (0 - 2 /HPF) 1-3 H Ur Epithelial Cells (NONE,FEW) FEW Urine Bacteria (NEG/NONE) PACKD H Urine Mucus (FEW,NONE) FEW Urine Hemoglobin (NEG) NEG Urine Glucose (N MG/DL) NEG Admission Meds I reviewed the following Meds: Current Medications Sig/Azar Start time Last Medication Dose Stop Time Status Admin Cholecalciferol 1,000 IU DAILY 08/18 1000 UNVr (Vitamin D) Morphine Sulfate 2 MG Q4P PRN 08/17 230 UNVr (Morphine) Morphine Sulfate 2 MG ONCE ONE 08/17 1600 CAN (Morphine) 08/17 1601 Omeprazole 40 MG DAILY AC 08/18 0700 UNVr (Prilosec) Ondansetron HCl 4 MG Q6P PRN 08/17 2300 UNVr (Zofran) Tramadol HCl 50 MG .[BIDP] PRN 08/17 2215 UNVr (Ultram) Tramadol HCl 50 MG ONCE ONE 08/17 1500 CAN (Ultram) 08/17 1501 Trazodone HCl See Dose AT BEDTIME PRN 08/17 2230 UNVr (Desyrel) Insts (1) Dose Instructions: (1)Trazodone HCl (Desyrel): 1-2 MG Acute Coronary Syndrome Inclusion Criteria ACS Diagnosis No Inpatient Core Measures LDL Reminder: If No, please order W/I first 24hr of stay Congestive Heart Failure Inclusion Criteria CHF Diagnosis No Cerebrovascular accident Inclusion Criteria CVA/TIA Diagnosis No Inpatient Core Measures Bedside Swallow Eval Reminder: If BSE failed, place ST order Antithrombotic Reminder: Order Antithrombotic Medication by end of day 2 Antithrombotic Reminder: Document Reason Antithrombotic Not ordered by end of day 2 AFIB/Flutter Reminder: If Present, add to problem list AFIB/Flutter Reminder: Order Anticoag Medication for pts with AFIB/Flutter Atherosclerosis Reminder: If Present, add to problem list LDL Reminder: If No, please order W/I first 24hr of stay PT Order Reminder: If No, please order Venous thromboembolism Inpatient Core Measures VTE Risk Factors: Acute medical illness, Age > 40, Surgery [facility] prophylaxis d/t No contraindications No VTE Pharm Prophylaxis d/t Surgical contraindication Inclusion Criteria - Per Current guidelines, there needs to be overlap - treatment for the first 5 days of Warfarin therapy. - Parenteral Anticoagulation (IV or SC) needs to be - given along with Warfarin therapy. VTE Diagnosis No VTE Type NONE VTE Confirmed by (Test) NONE Problem List As ranked by this Provider includes Assessment & Plan 1. Greater trochanter fracture 2. Ulnar fracture 3. Radius fracture HOME MEDS Home Med List Cholecalciferol (Vitamin D3) (Vitamin D) 2,000 UNIT CAPSULE 1 CAP PO DAILY supplement Docusate Sodium 100 MG CAPSULE 10 MG PO BID PRN CONSTIPATION Lansoprazole (Prevacid) 30 MG TAB.RAP.DR 1 TAB PO DAILY GI (Reported) Levothyroxine Sodium (Synthroid) 50 MCG TABLET 0.05 MG PO DAILY AC HYPOTHYROID Tramadol HCl 50 MG TABLET 1 TAB PO BIDP PRN PAIN (Reported) Trazodone HCl 50 MG TABLET 1-2 MG PO AT BEDTIME PRN sleep (Reported)
--- NOTE | 2016-08-18 00:09 | NUR ---
BED ASSIGNMENT 230-1
--- NOTE | 2016-08-18 00:15 | Cons- Orthopedic ---
See Addendum General Information and HPI Consulting Request Date of Consult: 08/17/16 Requested By: Lanie Mendez Reason for Consult: Left displaced distal radius fracture Left greater trochanteric hip fracture s/p DAY[place] Source of Information: patient, old records History of Present Illness: 81yo RHD female presents to ED with left wrist pain and left thigh pain. She was seen earlier today for her right knee in Dr. Armstrong's orthopaedic clinic. She had a fall in the exam room, striking her head and landing on the left side of her body. Small laceration to her head but denies loss of consciousness, headache, or neck pain. Pain and deformity of the left wrist but denies numbness or tingling in the hand. Left hip pain with attempted abduction of the leg, but reports only soreness in the thigh at rest. Allergies/Medications Allergies: Coded Allergies: diphenhydramine (HYPEREXCITABLE 08/17/16) Home Med List: Cholecalciferol (Vitamin D3) (Vitamin D) 2,000 UNIT CAPSULE 1 CAP PO DAILY supplement Docusate Sodium 100 MG CAPSULE 10 MG PO BID PRN CONSTIPATION Lansoprazole (Prevacid) 30 MG TAB.RAP.DR 1 TAB PO DAILY GI (Reported) Levothyroxine Sodium (Synthroid) 50 MCG TABLET 0.05 MG PO DAILY AC HYPOTHYROID REPEAT TSH IN 7 IN WEEKS Tramadol HCl 50 MG TABLET 1 TAB PO BIDP PRN PAIN (Reported) Trazodone HCl 50 MG TABLET 1-2 MG PO AT BEDTIME PRN sleep (Reported) Past History Medical History Neurological: NONE EENT: NONE (s/p extraction), cataracts Cardiovascular: hypertension Respiratory: NONE Gastrointestinal: GERD, peptic ulcer disease Hepatic: NONE Renal: NONE Musculoskeletal: osteoarthritis Psychiatric: NONE Endocrine: NONE Blood Disorders: NONE Cancer(s): 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 FH: CHF (congestive heart failure) Psychosocial History Services at Home: None Primary Language: French Functional Ability ADLs Independent: dressing, eating, toileting, bathing. Ambulation: independent IADLs Independent: housework, medication admin. Exam & Diagnostic Data Vital Signs and I&O Vital Signs Date Time Temp Pulse Resp B/P Pulse O2 O2 Flow FiO2 Ox Delivery Rate 08/178 97.8 68 18 162/84 96 Room Air 08/17 1849 97.5 75 18 153/78 97 08/17 1516 98.7 61 63 157/70 95 Intake & Output 08/18 0800 08/18 0000 08/17 1600 08/17 0800 08/17 0000 08/16 1600 Intake Total Output Total 350 Balance -350 Output, Urine 350 Physical Exam: Alert, oriented, in no acute distress. Small laceration over the left top of the scalp; clean and dry. No active bleeding. Nontender to palpation of right upper and lower extremities. Moving right arm and right leg without difficulty. LUE: No tenderness over the left shoulder and elbow. Intact shoulder abduction/ adduction and elbow flexion/extension without pain. Deformity, ecchymosis, and swelling of the left wrist consistent with known fracture. Pain with attempted wrist range of motion. Intact finger flexion/extension and thumb flexion/ extension. Fingers warm with brisk cap refill. Sensation intact to light touch in median, ulnar, and radial nerve distributions without numbness or tingling. LLE: No tenderness over left knee, calf, ankle, or foot. Mild tenderness over the anterior and lateral thigh. No pain with active flexion/extension of the left hip. Pain with resisted abduction of the left hip. Sensation intact to light touch in sural, saphenous, sup peroneal, deep peroneal, and tibial nerve distributions. Foot warm, well-perfused. Imaging Results: XR left wrist: Comminuted, displaced, intra-articular fractures of the distal left radius and ulnar as described. XR left hip: Left proximal femoral greater trochanter fracture without evidence of dislocation of left total hip arthroplasty. Other Results: PROCEDURE: Hematoma block and attempted closed reduction and splinting performed in the ED by Dr. Garvin. Second attempt at reduction performed by me in the ED using finger traps. IV medication administered for analgesia; patient tolerated well but with pain. Improved AP alignment s/p reduction, however continued dorsal displacement of distal radius fracture. Assessment/Plan Assessment/Plan 81yo RHD female present with left comminuted displaced distal fracture fracture and left minimally displaced greater trochanter fracture around [place]. The patient is now s/p two attempts at closed reduction of the left distal radius in the ED; improvement in alignment but persistent dorsal displacement of the distal fragment. Neurovascularly intact but persistent pain in the left wrist. - Plan for closed reduction, possible percutaneous fixation, of the distal radius fracture in the operating room with adequate analgesia and fluoroscopy. - Discussed risks and benefits of further intervention with patient, who would like to proceed with improved stabilization of the wrist. - Medical evaluation prior to further intervention in the OR. - NPO after midnight - Hold anticoagulation pending further intervention - IV fluids, GI prophylaxis. - Resume home medications. Minimal discomfort of the left hip at this time, although pain with resisted abduction. - Plan for mobilization with physical therapy, WBAT LLE; no active hip abduction. - Will assess for safety, independence to determine d/c home vs SNF. - Pain control Consult Acknowledgment - Thank you for your consult request. Attending MD Review Statement Attending Statement Attending MD Statement: examined this patient, discussed with family, reviewed images
--- NOTE | 2016-08-18 00:48 | NUR ---
REPORT TO GEOVANNA HENRY ON 2NA.
[2016-08-18 00:52] LABS: PT 10.6 SEC (9.4-12.5)
[2016-08-18] MEDS ORDERED: LISINOPRIL5 M1 PO (00:59)
[2016-08-18] MEDS ORDERED: ESCITALOPRAM OX10 MG PO (01:00)
[2016-08-18] MEDS ORDERED: SYNTHROID50 MCG PO ×2 (01:03→01:04)
[2016-08-18] MEDS ORDERED: VITAMIN D2000 UNIT PO (01:05)
[2016-08-18] MEDS ORDERED: VITAMIN D2000 UNI1 PO (01:21)
[2016-08-18 01:28] VITALS: BP 138/80
--- NOTE | 2016-08-18 02:20 | RADIOLOGY REPORT ---
EXAMINATION: XR PORTABLE CHEST CLINICAL INFORMATION: Preop. COMPARISON: Chest x-ray 11/15/2015 TECHNIQUE: Portable AP portable view of the chest was obtained. 2:02 AM FINDINGS: The previously seen tracheostomy catheter no longer present. No acute change of chest. Lungs are clear. No pulmonary vascular congestion. No infiltrate or pleural effusion. The heart size is normal. The cardiac and mediastinal contours are normal. There are calcifications of the thoracic aorta. There are multilevel degenerative changes of dorsal spine. Severe arthropathy of the right glenohumeral joint with remodeling of the bone joint space narrowing subchondral sclerosis and spurring of both humeral head and glenoid. Moderate degenerative joint disease also of the left glenohumeral joint with joint narrowing and spurring. IMPRESSION: No acute abnormality of chest.
--- NOTE | 2016-08-18 02:21 | NUR ---
NURSING NOTE: PT ARRIVED TO [facility] VIA STRETCHER @ 4245. PT A&O X3, CALM, AND COOPERATIVE. STATING ACHING PAIN 3/10 - TOLERABLE PER PT. IVF RUNNING PER ORDER. PT REQUESTING BED PAIN TO VOID. EDEMA/ECCYMOTIC LUE - CAST IN PLACE. ADMISSION ASSESSMENT COMPLETED. PT ORIENTED TO STAFF, ROOM, AND CALL MURRIETA. RN WILL CONTINUE TO MONITOR.
[2016-08-18 06:30] VITALS: BP 124/70
--- NOTE | 2016-08-18 08:59 | NUR ---
Physical Therapy: Consult received and chart reviewed. Pt currently MNAOJ for surgical intervention of L wrist. Will follow up tomorrow as appropriate for IE. THank you.
--- NOTE | 2016-08-18 09:43 | PN- Orthopedic ---
See Addendum Subjective Subjective: Patient seen examined this morning. Reports pain in the left wrist but otherwise comfortable. No issues overnight; she has been NPO Objective Vital Signs and I&Os Vital Signs Date Time Temp Pulse Resp B/P Pulse O2 O2 Flow FiO2 Ox Delivery Rate 08/18 0630 99.2 85 20 124/70 95 Room Air 08/18 0216 97 Room Air 08/18 0128 98.8 75 18 138/80 97 Room Air 08/17 2228 97.8 68 18 162/84 96 Room Air 08/17 1849 97.5 75 18 153/78 97 08/17 1516 98.7 61 63 157/70 95 Intake & Output 08/18 1600 08/18 0808/18 0000 08/17 1600 08/17 0000 Intake Total 525 Output Total 600 350 Balance -75 -350 Intake, IV 525 Intake, Oral 0 Number 0 Bowel Movements Output, Urine 600 350 Patient 175 lb Weight Physical Exam: Alert, awake, no distress. LUE: splint in place, swelling of distal fingers. Able to actively flex fingers to form fist; pain in wrist with active extension. Sensation intact to light touch over fingers and thumb, denies numbness and tingling. Finger warm with brisk cap refill LLE: No tenderness over left hip or greater trochanter. No abrasions or ecchymosis. No pain with passive log roll of left leg. Sensation intact to light touch over left lower leg/feet, denies numbness or tingling. Assessment/Plan Assessment/Plan 81yo F with left displaced distal radius fracture and left minimally displaced periprosthetic greater trochanter fracture s/p fall. Plan for OR today for sedation and closed reduction vs closed reduction and percutaneous stabilization of left distal radius fracture. NPO for procedure; IV fluids. Pain control. Hold anticoagulation; SCDs while in bed. Resume home meds after procedure. Left hip: stable-appearing [place] prosthesis on exam; minimal pain. Plan for protected partial weight-bearing, mobilization with physical therapy today. Avoid active abduction. Dispo pending procedure and mobilization with physical therapy. Core Measures/Miscellaneous Venous Thromboembolism VTE Risk Factors: Age > 40, Immobility, paresis VTE Contraindications: No Contraindications VTE Diagnosis: No VTE Type: NONE VTE Confirmed by (Test): NONE Beta Manish Is Beta Manish a Home Med? No Antibiotics Is Patient on Antibiotics? No Attending MD Review Statement Attending Statement Attending MD Statement: examined this patient, reviewed images
[2016-08-18 10:51] VITALS: BP 154/74
--- NOTE | 2016-08-18 10:52 | NUR ---
PT ARRIVED BACK TO FLOOR FROM OR AT 1040; VSS; + CMS; A/OX3; L ARM RADHA WRAPPED WITH SLING IN PLACE; COMPLAINTS OF PAIN IN THE L ARM; ADMINISTERED PAIN MEDICATION ORDERED; WILL CONTINUE TO MONITOR.
--- NOTE | 2016-08-18 12:44 | PN- Att Addend ---
Attending Addendum Attending Brief Note Patient seen and examined, came back from the procedure. Procedure note is not in to clarify exactly what kind of procedure she had. She now has been Rik wrap around her left upper extremities which is in a sling. She feels comfortable and denies any current pain. Vital Signs Date Time Temp Pulse Resp B/P Pulse O2 O2 Flow FiO2 Ox Delivery Rate 08/18 1051 98.2 68 20 154/74 94 Room Air 08/18 1041 68 154/74 08/18 0630 99.2 85 20 124/70 95 Room Air 08/18 0216 97 Room Air 08/18 0128 98.8 75 18 138/80 97 Room Air 08/17 2228 97.8 68 18 162/84 96 Room Air 08/17 1849 97.5 75 18 153/78 97 08/17 1516 98.7 61 63 157/70 95 on exam; aox3, nad. cv; s1,s2, + sytolic murmur. resp; clear b/l abd; soft, nt, bs+ ext; no edema. Laboratory Tests 08/18 08/17 0600 2126 Chemistry Sodium (137 - 145 mmol/L) 138 Potassium (3.5 - 5.1 mmol/L) 4.7 Chloride (98 - 107 mmol/L) 105 Carbon Dioxide (22 - 30 mmol/L) 24 Anion Gap (5 - 16) 8 BUN (7 - 17 mg/dL) 27 H Creatinine (0.5 - 1.0 mg/dL) 0.5 Estimated GFR (>60 ml/min) > 60 BUN/Creatinine Ratio (7 - 25 %) 54.0 H Glucose (65 - 99 mg/dL) 96 Calcium (8.4 - 10.2 mg/dL) 9.5 Total Bilirubin (0.2 - 1.3 mg/dL) 0.7 AST (14 - 36 U/L) 18 ALT (9 - 52 U/L) 26 Alkaline Phosphatase (<127 U/L) 119 Troponin I (< 0.11 ng/ml) < 0.01 Total Protein (6.3 - 8.2 g/dL) 6.0 L Albumin (3.5 - 5.0 g/dL) 3.5 Globulin (1.9 - 4.2 gm/dL) 2.5 Albumin/Globulin Ratio (1.1 - 2.2 %) 1.4 TSH (0.270 - 4.200 uIU/mL) 2.150 Free T4 (0.78 - 2.44 ng/dL) 1.03 Coagulation PT (9.4 - 12.5 SEC) 10.6 INR (0.90 - 1.19) 1.01 APTT Cancelled Hematology CBC w Diff NO MAN DIFF REQ WBC (4.8 - 10.8 /CUMM) 12.9 H RBC (4.20 - 5.40 /CUMM) 4.12 L Hgb (12.0 - 16.0 G/DL) 12.8 Hct (37 - 47 %) 38.1 MCV (81.0 - 99.0 FL) 92.7 MCH (27.0 - 31.0 PG) 31.0 RDW (11.5 - 14.5 %) 14.4 Plt Count (130 - 400 /CUMM) 239 MPV (7.4 - 10.4 FL) 8.5 Gran % (42.2 - 75.2 %) 73.6 Lymphocytes % (20.5 - 51.1 %) 17.5 L Monocytes % (1.7 - 9.3 %) 6.1 Eosinophils % (0 - 5 %) 2.3 Basophils % (0.0 - 2.0 %) 0.5 Absolute Granulocytes (1.4 - 6.5 /CUMM) 9.5 H Absolute Lymphocytes (1.2 - 3.4 /CUMM) 2.3 Absolute Monocytes (0.10 - 0.60 /CUMM) 0.8 H Absolute Eosinophils (0.0 - 0.7 /CUMM) 0.3 Absolute Basophils (0.0 - 0.2 /CUMM) 0.1 PUBS MCHC (33.0 - 37.0 G/DL) 33.4 Urines Urine Color (YEL,AMB,STR) YEL Urine Clarity (CLEAR) HAZY H Urine pH (5.0 - 8.0) 6.0 Ur Specific [place] (1.001 - 1.035) 1.025 Urine Protein (NEG,<30 MG/DL) NEG Urine Ketones (NEG) NEG Urine Nitrite (NEG) POS H Urine Bilirubin (NEG) NEG Urine Urobilinogen (0.1 - 1.0 EU/dl) 0.2 Ur Leukocyte Esterase (NEG) NEG Ur Microscopic SEDIMENT EXAMINED Urine WBC (0 - 2 /HPF) 1-3 H Ur Epithelial Cells (NONE,FEW) FEW Urine Bacteria (NEG/NONE) PACKD H Urine Mucus (FEW,NONE) FEW Urine Hemoglobin (NEG) NEG Urine Glucose (N MG/DL) NEG Assessment and recommendations: 81 y/o F with pmh sig for HTN, GERD, peptic ulcer disease, osteoarthritis, hypothyroidism, hx of gastric outlet obstruction s/p gastrojejunostomy (2015), hx of bowel perforation s/p exploratory laparotomy & Ricco patch/washout complicated with septic shock (2016), admitted with a mechanical fall and found to have communited, displaced, intra-articular fracutres of distal Lt. radius/ ulnar. She also had left proximal femoral greater trochanter fracture without evidence of dislocation of left total hip arthroplasty. Patient was taken to operating room today with Dr. Vo for the fixation off radial and ulnar fracture. Trochanteric fracture of the left femur is to be treated conservatively. Currently patient feels well. Denies any pain. Her blood pressure is slightly high but she is ordered lisinopril which likely will bring her blood pressure down. High blood pressure could be due to stress, procedure as well as pain. Her pain management is ordered with the tramadol as well as morphine. I will leave the DVT prophylaxis up to orthopedics. Patient needs physical therapy evaluation. Thank you very much will follow along with you.
[2016-08-18 15:08] VITALS: BP 126/64
--- NOTE | 2016-08-18 19:08 | Operative Report ---
Operative/Inv Procedure Report Surgery Date: 08/18/16 Name of Procedure: Closed reduction of left displaced distal radius fracture Pre-Operative Diagnosis: Left dorsally-displaced distal radius fracture Post-Operative Diagnosis: Left displaced distal radius fracture Estimated Blood Loss: none Surgeon/Hand Frame Surgical Elastic Knitter: RACHEL JUSTICE MD Anesthesia: moderate sedation Complications: None Condition: Stable Operative/Procedure Note Note: INDICATION FOR PROCEDURE: Ria Rivero is a 81 year-old right hand dominant female who presented to the [facility] on 08/17/2016. She was at her orthopaedic surgeon's clinic for evaluation of her right knee when she fell in the examination room. Denies loss of consciousness, but she did hit her head and landed on her left hand and left hip. She was transported to the ER and found to have a significantly displaced left distal radius fracture and a minimally displaced periprosthetic greater trochanter fracture (prior total hip arthroplasty in 2013). She was neurovascularly intact. An attempt at reduction of the left distal radius fracture was performed by Dr. Garvin in the ED, approximately 4 hours after her injury, with a hematoma block. Post-reduction xrays did not show improvement in alignment. A second attempt at reduction was performed by me using finger traps and ligamentotaxis. The reduction resulting in improvement in length but persistent dorsal displacement of the distal fracture fragment. After discussing the risks and benefits of additional attempts at reduction, the patient opted to proceed with closed reduction with possible percutaneous pin stabilization in the operating room. PROCEDURE NOTE: Ria Rivero was brought to the operating room on 08/18/2016. She was met in the pre-operative area, where her left hand was marked and her consent was reviewed. She was then brought into the operating room and places supine on the OR table. The left upper extremity was supported by a dedicated hand table. Sequential compression devices were applied to bilateral lower legs. A time-out procedure was performed, in which the patient, the fractured extremity, and the procedure were reviewed. No jasbir-operative antibiotics were administered but were available should we need to proceed with an invasive procedure. The patient was given moderate sedation. The splint was removed from the left upper extremity. The hand and wrist were swollen and ecchymotic, but the skin was intact. Fluoroscopic images of the wrist were obtained to verify the current position of fracture. The wrist was placed under gentle traction and the fracture was palpated. The fracture was then reduced by recreating the deforming force and pusing the distal fragment from posterior to anterior while traction was maintained. Fluoroscopic images showed improvement in alignment on the AP and lateral views, and the fracture did not appear overly unstable with movement of the arm and wrist. Manipulation of the wrist resulted in two small superificial skin tears. The tears were dressed with xeroform and the arm wrapped with webril from elbow to palm. A plaster sugartong splint was applied and a 3-point mold applied to the wrist, with emphasis over the distal radius fracture fragement. After the splint hardedned, additional images were obtained that revealed maintenance fo the fracture alignment. At this time, I opted to continue with closed treatment of the fracture without pinning, but will continue to monitor closely for displacement. Given her age, bone quality, and non-dominant wrist, we may accept some malreduction in favor of less invasive treatment. The patient was taken from the OR to the recovery room in stable condition.
--- NOTE | 2016-08-18 19:56 | PN- Orthopedic ---
Surgical Brief Attending Note Brief Attending Note: Patient seen and examined s/p closed reduction of left distal radius fracture. Doing well. Reports improvement in pain in left wrist. She did not get out of bed with PT today. Denies left hip pain but notes "aching" in the thigh. Exam: splint to LUE. Finger swollen but intact flexion/extension and intact extension of thumb. Sensation intact to light touch over finger and distal hand. Intact left hip and knee flexion. Denies pain with active motion. Sensation intact to light touch over bilateral feet. SCDs on and running. A/P: 81yo RHD F s/p closed reduction and splinting of left distal radius fracture. Doing well. 1. NWB LUE in splint, sling. Elevation of left arm to minimize distal edema. Encourage finger ROM 2. Protected PWB LLE, PT evaluation. No active hip abduction. 3. Pain control 4. SubQ heparin and SCDs for DVT prophylaxis 5. heart healthy diet 6. Resume home meds 7. Appreciate medicine consult and recommendations 8. Disposition pending PT evaluation.
[2016-08-18 23:46] VITALS: BP 114/58
[2016-08-19 06:03] VITALS: BP 112/60
--- NOTE | 2016-08-19 11:30 | PN- Orthopedic ---
Subjective Subjective: Patient complaining of increased left wrist and thigh pain today. Up to chair earlier, but says she had to get back to bed due to hip pain. Comfortable now, but soreness in left wrist. She has been moving and stretching her fingers. Objective Vital Signs and I&Os Vital Signs Date Time Temp Pulse Resp B/P Pulse O2 O2 Flow FiO2 Ox Delivery Rate 08/19 0809 80 110/60 08/19 0603 99.7 78 18 112/60 93 Room Air 08/18 2346 99.3 65 20 114/58 95 Room Air 08/18 1600 Room Air 08/18 1508 98.7 78 20 126/64 94 Intake & Output 08/19 1600 08/19 0808/19 0000 08/18 1600 08/18 0000 Intake Total 500 240 240 525 Output Total 300 300 600 350 Balance 200 240 -60 -75 -350 Intake, IV 20 525 Intake, Oral 480 240 240 0 Number 0 Bowel Movements Output, Urine 300 300 600 350 Patient 175 lb Weight Physical Exam: Alert, oriented, pleasant. RUE: splint/sling in place, clean and dry. Swelling of left fingers and thumb Intact finger flexion/extension and thumb flexion/extension Sensation intact to light touch over fingers and hand Fingers warm, well-perfused. RLE: Tender to palpation over left anterolateral thigh; no tenderness over distal thigh, knee, calf, or foot. Intact hip flexion/extension, knee flexion/extension, and ankle DF/PF Sensation intact to light touch over foot/ankle. Foot warm and well-perfused Assessment/Plan Assessment/Plan 72yo RHD female with left distal radius fracture (s/p closed reduction and splinting) and left minimally displaced periprosthetic greater trochanter fracture. Increased pain today in wrist and hip with mobilization. 1. NWB LUE in splint, elevation at all times for assistance with edema control 2. Protected partial weight bearing left hip, no active abduction of leg. 3. Pain control - may try 1 or 2 doses of toradol to assist with pain control 4. SuqQ heparin and SCDs while in bed 5. Heart-healthy diet 6. Bowel regimen 7. Resume home medications 8. Appreciate medical teams input in consultation. Disposition pending; likely short term rehab Core Measures/Miscellaneous Venous Thromboembolism VTE Risk Factors: Age > 40, Immobility, paresis VTE Contraindications: No Contraindications VTE Diagnosis: No VTE Type: NONE VTE Confirmed by (Test): NONE Beta Manish Is Beta Manish a Home Med? No Antibiotics Is Patient on Antibiotics? No Attending MD Review Statement Attending Statement Attending MD Statement: examined this patient, discuss w/resident/PA/HOSPITAL MEDICAL BILLER
--- NOTE | 2016-08-19 13:18 | PN- Att Addend ---
Attending Addendum Attending Brief Note Patient seen and examined, she was complaining of some pain in her left arm and said the Dilaudid was helping better than the morphine. Vital Signs Date Time Temp Pulse Resp B/P Pulse O2 O2 Flow FiO2 Ox Delivery Rate 08/19 0809 80 110/60 08/19 0800 Room Air 08/19 0603 99.7 78 18 112/60 93 Room Air 08/18 2346 99.3 65 20 114/58 95 Room Air 08/18 1600 Room Air 08/18 1508 98.7 78 20 126/64 94 on exam; aox3, nad. cv; s1,s2, rrr resp; clear abd; soft, nt, bs+ ext; no edema. ms: daquane is wrapped in splint. no labs. Assessment and recommendations: 81 y/o F with pmh sig for HTN, GERD, peptic ulcer disease, osteoarthritis, hypothyroidism, hx of gastric outlet obstruction s/p gastrojejunostomy (2015), hx of bowel perforation s/p exploratory laparotomy & Ricco patch/washout complicated with septic shock (2016), admitted with a mechanical fall and found to have communited, displaced, intra-articular fracutres of distal Lt. radius/ ulnar. She also had left proximal femoral greater trochanter fracture without evidence of dislocation of left total hip arthroplasty. S/P Closed reduction of left displaced distal radius fracture postop day #1. As mentioned patient is feeling better after she takes Dilaudid. Would recommend continuing that. She is not on any DVT px. I've notified surgical PA who will discuss with orthopedic. Recommend checking her BEP in the morning. Continue the rest of the management. Thank you will follow along with you.
[2016-08-19 14:15] VITALS: BP 110/62
--- NOTE | 2016-08-19 16:34 | NUR ---
THIS RN ASSUMED CARE OF THIS PT AT 1330. PT A/O X3. PT O NRA. PAIN MILD. L ARM IN SLING ELEVATED ON PILLOWS IN BED. BED ALARM ON. CALL MURRIETA WITHIN REACH. WILL MONITOR
[2016-08-19 23:20] VITALS: BP 104/60
[2016-08-20 06:50] VITALS: BP 110/60
--- NOTE | 2016-08-20 07:15 | PN- Medicine Consult ---
See Addendum KARAN WEEKS 08/20/16 0715: Assessment/Plan Assessment/Plan Assessment: 81 yo female with pmh of HTN, GERD, peptic ulcer disease, osteoarthritis, hypothyroidism, hx of gastric outlet obstruction s/p gastrojejunostomy (2014), hx of bowel perforation s/p exploratory laparotomy & Ricco patch/washout complicated with septic shock (2016) presented with Lt. radius/ulnar & Lt. proximal femoral fracutre s/p mechanical fall. Problem list: 1. Left radius/ulna and left proximal femur fracture 2. Hypertension 3. GERD 4. History of vitamin D deficiency 5. Lung nodules Plan: 1. Left radius/ulna and left proximal femur fracture * Pain well controlled thus far with Dilaudid 2 mg PO Q3P (8 doses of the past 24 hours) * Last dose of IV morphine was yesterday morning * Also on tramadol 50 mg PO BID * Consider starting the patient on bowel regimen to avoid opioid-induced constipation 2. Hypertension * Blood pressure well controlled thus far. Continue lisinopril 5 mg daily 3. GERD * Continue omeprazole 40 mg daily 4. Vitamin D deficiency * Vitamin D level 14.0 in November 2015 * Recommend checking a vitamin D level and supplementing with high-dose if <30 * Unsure if the patient has had a DEXA scan in the past. In the setting of these fractures and depending on her FRAX score, patient may benefit from bisphosphonate therapy. Recommend outpatient follow-up for DEXA scan 5. Lung nodule * Outpatient follow-up with Dr. Shipman Subjective Subjective: Interval history: Overnight there were no acute events. This morning the patient reports that the pain in her left upper extremity is well-controlled and she does report improvement in her ability to move fingers. The pain in the left hip is also well controlled at this time. Patient reports that her last bowel movement was 3 days ago which is her normal frequency. She denies any fevers, chills, difficulty breathing, abdominal pain, numbness or weakness in any of her extremities. Review of Systems Constitutional: Reports: see HPI. EENTM: Reports: no symptoms. Cardiovascular: Reports: no symptoms. Respiratory: Reports: no symptoms. Gastrointestinal: Reports: see HPI. Musculoskeletal: Reports: see HPI. Objective Last 24 Hrs of Vital Signs/I&O Vital Signs Date Time Temp Pulse Resp B/P Pulse O2 O2 Flow FiO2 Ox Delivery Rate 08/20 0650 99.6 78 18 110/60 93 Room Air 08/19 2320 98.6 78 20 104/60 92 Room Air 08/19 1415 98.1 75 20 110/62 94 08/19 0909 80 110/60 Intake & Output 08/20 1600 08/20 0800 08/20 0000 Intake Total 250 300 Output Total 250 300 Balance 0 0 Intake, Oral 250 300 Output, Urine 250 300 Physical Exam General Appearance: no apparent distress, alert, comfortable Head: normal appearance Ears, Nose, Throat: moist mucus membranes Cardiovascular: regular rate/rhythm, normal peripheral pulses Respiratory: normal breath sounds, no respiratory distress, lungs clear Abdomen: normal bowel sounds, soft, non-tender Extremities: The LUE ins in a cast upto the elbow, positioned in a sling. FROM in the fingers, sensation intact Current Medications: Current Medications Sig/Azar Start time Last Medication Dose Route Stop Time Status Admin Cholecalciferol 1,000 IU DAILY 08/18 1000 AC 08/19 PO 0909 Heparin Sodium 5,000 UNIT Q8 08/19 1400 AC 08/20 (Porcine) SC 0519 Hydromorphone HCl 2 MG Q3P PRN 08/19 0900 AC 08/20 PO 0519 Ketorolac 15 MG Q6P PRN 08/19 1300 AC Tromethamine IV 08/24 1301 Lisinopril 5 MG DAILY 08/18 1000 AC 08/19 PO 0909 Morphine Sulfate 4 MG Q4P PRN 08/18 0030 AC 08/19 IV 0547 Morphine Sulfate 2 MG Q4P PRN 08/17 2300 AC IV Omeprazole 40 MG DAILY AC 08/18 0700 AC 08/20 PO 0519 Ondansetron HCl 4 MG Q6P PRN 08/17 2300 AC IV Tramadol HCl 50 MG BID PRN 08/17 2215 AC 08/20 PO 0034 Results Last 24 Hrs Lab/Giovanni Results: None DELIO DUNCAN,TONE 08/20/16 1113: Attending MD Review Statement Attending Sign Off Attending Cosign Statement: I have: examined this patient, reviewed aval EMR data, personally reviewd images, discussed mgmt plan w/aniya, discussed mgmt plan w/pt, agreed w/resident/ PA/RETAIL BUSINESS DEVELOPMENT MANAGER, amended to note. Other Findings: Patient seen and examined, feeling a little better. Claims that now she is able to wiggle her left hand fingers. Pain is well controlled with Dilaudid. Her vital signs are stable. She is working at physical therapy. For DVT prophylaxis patient has been started on heparin subcutaneous. From medical standpoint patient is stable for discharge. Discharge disposition as per orthopedic.
--- NOTE | 2016-08-20 07:54 | PN- Orthopedic ---
See Addendum Subjective Subjective: Patient reporting no acute overnight events. States that she notices occasional discomfort in left wrist but it has been responding well to dilaudid. States that pain to left leg is improving, has been able to shift position in bed. Will sit in chair today. Denies chest pain, shortness of breath, and difficulty breathing. Denies nausea and vomitting . Has been voiding. Has been tolerating diet. Objective Vital Signs and I&Os Vital Signs Date Time Temp Pulse Resp B/P Pulse O2 O2 Flow FiO2 Ox Delivery Rate 08/20 0650 99.6 78 18 110/60 93 Room Air 08/19 2320 98.6 78 20 104/60 92 Room Air 08/19 1415 98.1 75 20 110/62 94 08/19 0909 80 110/60 08/19 0800 Room Air Intake & Output 08/20 0800 08/20 0000 08/19 1600 08/19 0800 08/19 0000 08/18 1600 Intake Total 250 300 250 500 240 240 Output Total 250 300 200 300 300 Balance 0 0 50 200 240 -60 Intake, IV 10 20 Intake, Oral 250 300 240 480 240 240 Output, Urine 250 300 200 300 300 Physical Exam: General: Alert and oriented x3, no acute distress Cardiac: RRR, s1s2 Pulm: CTA Abdomen: Non-tender, non-distended Extremties: LUE: Moves all fingers, distal sensations intact. No pain with passive flexion and extension of fingers. Capillary refill brisk to all fingers. Skin warm, no breakdown. Improvement in swelling compared to one day ago. Elevated on pillow LLE: Distal sensation intact. Tender with palpation to left thigh, thigh compartment soft. Skin warm and well perfused. Motor intact, 5/5 in plantar and dorsi flexion. Active flexion and extension at knee. Bilateral calves soft and non-tender, DP pulses palpable bilaterally. Assessment/Plan Assessment/Plan This is a 81 year old female, hospital day 3 for left wrist and greater troch fractures -Dilaudid for pain, okay to temporarily use toradol, but only if needed for breakthrough -Continue diet -Sub Q heparin for dvt ppx -OOB to chair, wbat -Plan [facility] -D/W Dr. Ritchie Core Measures/Miscellaneous Venous Thromboembolism VTE Risk Factors: Age > 40, Immobility, paresis VTE Contraindications: No Contraindications VTE Diagnosis: No VTE Type: NONE VTE Confirmed by (Test): NONE Beta Manish Is Beta Manish a Home Med? No Antibiotics Is Patient on Antibiotics? No
--- NOTE | 2016-08-20 08:13 | Patient Discharge Instructions ---
Discharge Instructions General Discharge Information You were seen/treated for: LEFT WRIST AND LEFT GREATER TROCHANTERIC FRACTURE You had these procedures: CLOSED REDUCTION OF WRIST FRACTURE Watch for these problems: INCREASED PAIN,WORSENING LIMITATION OF LEFT HAND MOTION, FEVER GREater [id number], Diet Continue normal diet: Yes Recommended Diet: Regular Activity Full Activity/No Limits: Yes Activity Self Limited: No Pounds, do NOT lift more than: 5 Activity Limited to: No weight bearing (on left wrist till seen by drea) Other activity limits: partial weight bearing, left leg Acute Coronary Syndrome Inclusion Criteria At DC or during hospital stay patient has or had the following: ACS DIAGNOSIS No Discharge Core Measures Meds if any: Prescribed or Continued at Discharge RADHA/ARB if EF <40% Yes Meds if any: NOT Prescribed or Continued at Discharge Congestive Heart Failure Inclusion Criteria At DC or during hospital stay patient has or had the following: CHF DIAGNOSIS No Discharge Core Measures Meds if any: Prescribed or Continued at Discharge RADHA/ARB for EF <40% No Meds if any: NOT Prescribed or Continued at Discharge Cerebrovascular accident Inclusion Criteria At DC or during hospital stay patient has or had the following: CVA/TIA Diagnosis No Discharge Core Measures Meds if any: Prescribed or Continued at Discharge Antithrombotic No Statin (required if LDL =>70) No Anticoagulant No Meds if any: NOT Prescribed or Continued at Discharge Venous thromboembolism Inclusion Criteria VTE Diagnosis No VTE Type NONE VTE Confirmed by (Test) NONE Discharge Core Measures - Per Current guidelines, there needs to be overlap - treatment for the first 5 days of Warfarin therapy. - If discharged on Warfarin prior to 5 days of - overlap therapy, the patient will need to be - assessed for post discharge needs including - *Post discharge parental anticoagulation - *Warfarin and/or parental anticoagulation education - *Follow up date to check INR post discharge At least 5 days overlap therapy as Inpatient No Meds if any: Prescribed or Continued at Discharge Warfarin No Note: Overlap Therapy is Warfarin and Anticoagulant Meds if any: NOT Prescribed or Continued at Discharge
--- NOTE | 2016-08-20 08:28 | Surgical Discharge Summary ---
Visit Information Visit Dates Admission Date: 08/17/16 Discharge Date: 08/22/16 History of Present Illness Chief Complaint: Left distal radius fracture and left greater trochanter jasbir-prosthetic fracture s/p fall. Superficial scalp laceration not requiring stitches. Medical History Blood Transfusion Hx: Yes Neurological: NONE EENT: cataracts Cardiovascular: hypertension Respiratory: NONE Gastrointestinal: GERD, peptic ulcer disease Hepatic: NONE Renal: NONE Musculoskeletal: osteoarthritis Psychiatric: NONE Endocrine: NONE Blood Disorders: NONE Cancer(s): NONE C T TECH/Reproductive: NONE History of MRSA: No History of VRE: No History of CDIFF: No Isolation History: Standard Pneumonia Vaccine: 10/15/11 Tetanus Vaccine: 08/17/16 Surgical History Pertinent Surgical History: hip replacement, EXPLORATORY LAPAROSCOPIC SURGERY Family History Relations & Conditions If Any: MOTHER FH: stomach cancer FATHER (MD - age 53). FH: CHF (congestive heart failure) Psychosocial History Where Do You Live? Home Who Do You Live With? Patient/Self Services at Home: None What is Your Primary Language? Mohawk Review of Systems: see h&p Hospital Course Course Attending Physician: RACHEL JUSTICE MD Primary Care Physician: GERDA HOOD MD Hospital Course: Ms. Rivero sustained a mechanical fall while in her orthopaedic surgeon's office, resulting in a laceration to her scalp and deformity of the left wrist. She was transported to the [place] ED for further care. In the ED, patient was evaluated. Her workup including Xrays showing left greater trochanteric minimally displaced periprosthetic fracture and a comminuted displaced left distal radius fracture. She also had left scalp laceration, but did not require further intervention once hemostasis was obtained. Pt. underwent 2 attempts of left wrist reduction in ED. Follow-up XRs showed improved allignement however she still had dorsal dislacement of distal radius requiring closed reduction of left displaced radial fx in OR (with moderate sedation) on 08/18/16. Patient's further hospital course has been unremarkable. Her pain has been well controlled with oral Dilaudid. She had a good response to Toradol, but this was used sparingly and eventually discontinued. She has adequate flexion/extension and sensation of thumb, fingers and wrist. She also has adequate left hip flexion.Neurovascular exam was normal with intact sensation to light touch. Pt. diet has been progressed to regualr which she has been tolerating well. Her hemodynamics are stable.Her vital signs and labs are unremarkable. Discharge to [facility] is anticpated to increase her mobilty and endurance. Complications: None Allergies: Coded Allergies: diphenhydramine (HYPEREXCITABLE 08/17/16) Disposition Summary Disposition Principal Diagnosis: 1. Left comminuted displaced distal radius fracture, s/p closed reduction and splinting. 2. Left minimally-displaced jasbir-prosthetic greater trochanteric hip fracture Additional Diagnosis: s/p closed reduction of left displaced distal radius fracture (08/18/16) Discharge Disposition: SNF Discharge Instructions General Discharge Information Code Status: Full Code Patient's Diet: heart healthy Patient's Activity: non-weight bearing, left upper extremity partial weight bearing, left lower extremity platform walker for ambulation. left wrist splinted. Sling when ambulatory, keep hand elevated at all times. Follow-Up Instructions/Appts: call to schedule follow up appointment with in one week. Medications at Discharge Discharge Medications: Stop taking the following medications: Tramadol HCl (Tramadol HCl) 50 MG TABLET ORAL 2 x Daily as needed as needed for PAIN Qty = 30 Continue taking these medications: Lansoprazole (Prevacid) 30 MG TAB.RAP. 1 Tablet ORAL DAILY Qty = 90 Comments: Last Taken:08/22/16 Time:0530 Lisinopril (Lisinopril) 5 MG TABLET 1 Tablet ORAL DAILY Qty = 90 Comments: Last Taken:08/22/16 Time:0800 Cholecalciferol (Vitamin D3) (Vitamin D) 2,000 UNIT TABLET 1 Tablet ORAL DAILY Comments: Last Taken:08/22/16 Time:0800 Start taking the following new medications: Docusate Sodium (Docusate Sodium) 100 MG CAPSULE 100 Milligram ORAL TWICE DAILY as needed for CONSTIPATION Days = 14 No Refills Comments: Last Taken:08/22/16 Time:0800 Hydromorphone HCl (Hydromorphone HCl) 2 MG TABLET 1-2 Tablet ORAL EVERY 4-6 HOURS NEEDED as needed for pain control Qty = 36 No Refills Comments: Last Taken:08/22/16 Time:0800 Tramadol HCl (Ultram) 50 MG TABLET 1 Tablet ORAL EVERY SIX HOURS NEEDED as needed for PAIN, INSOMNIA Qty = 30 No Refills Comments: Last Taken:08/22/16 Time:0000 Copies To: SANA DUNCAN,GERDA Goodwin MD Review Statement Attending Statement Attending MD Statement: examined this patient, discuss w/resident/PA/TAXATION ACCOUNTANT, discussed w/case mgmt, amended to note Attending Assessment/Plan: Discharge summary amended and update. Plan for closed management of both left distal radius fracture and left minimally-displaced periprosthetic greater trochanteric fracture. Follow up in clinic in one week for reevaluation. Please given lovenox 40mg qd for DVT prophylaxis until mobilization improves.
[2016-08-20 14:04] VITALS: BP 100/60
[2016-08-20 22:50] VITALS: BP 106/58
[2016-08-21 06:20] VITALS: BP 100/58
--- NOTE | 2016-08-21 07:16 | PN- Medicine Consult ---
KARAN WEEKS 08/21/16 0716: Assessment/Plan Assessment/Plan Assessment: 81 yo female with pmh of HTN, GERD, peptic ulcer disease, osteoarthritis, hypothyroidism, hx of gastric outlet obstruction s/p gastrojejunostomy (2015), hx of bowel perforation s/p exploratory laparotomy & Ricco patch/washout complicated with septic shock (2016) presented with Lt. radius/ulnar & Lt. proximal femoral fracutre s/p mechanical fall. Problem list: 1. Left radius/ulna and left proximal femur fracture 2. Hypertension 3. GERD 4. History of vitamin D deficiency 5. Lung nodules Plan: 1. Left radius/ulna and left proximal femur fracture * Pain management per surgery * Continue a bowel regimen for one BM per 24 hours 2. Hypertension * Blood pressure well controlled thus far. Continue lisinopril 5 mg daily 3. GERD * Continue omeprazole 40 mg daily 4. Vitamin D deficiency * Vitamin D level 14.0 in November 2015 * Recommend checking a vitamin D level and supplementing with high-dose if <30 * Unsure if the patient has had a DEXA scan in the past. In the setting of these fractures and depending on her FRAX score, patient may benefit from bisphosphonate therapy. Recommend outpatient follow-up for DEXA scan 5. Lung nodule * Outpatient follow-up with Dr. Shipman Disposition: Stable from medical standpoint at this time Problem List: 1. Ulnar fracture 2. Radius fracture 3. Hypertension 4. GERD (gastroesophageal reflux disease) 5. Vitamin D deficiency Subjective Subjective: Interval history: No acute events overnight. Patient has not had a bowel regimen at this time but denies any abdominal pain. She denies any fevers, chills at this time. Review of Systems Constitutional: Reports: see HPI. EENTM: Reports: no symptoms. Cardiovascular: Reports: no symptoms. Respiratory: Reports: no symptoms. Gastrointestinal: Reports: see HPI. Musculoskeletal: Reports: see HPI. Objective Last 24 Hrs of Vital Signs/I&O Vital Signs Date Time Temp Pulse Resp B/P Pulse O2 O2 Flow FiO2 Ox Delivery Rate 08/21 1435 97.1 60 20 120/68 97 08/21 0948 85 122/70 08/21 0620 98.1 74 18 100/58 93 Room Air 08/20 2250 99.2 75 20 106/58 93 Room Air Intake & Output 08/21 1600 08/21 0800 04/11 0000 Intake Total 480 490 Output Total 250 400 Balance 230 90 Intake, IV 10 Intake, Oral 480 480 Output, Urine 250 400 Physical Exam General Appearance: no apparent distress, comfortable Head: normal appearance Ears, Nose, Throat: hearing grossly normal Cardiovascular: regular rate/rhythm, normal peripheral pulses Respiratory: normal breath sounds, no respiratory distress Abdomen: normal bowel sounds, soft, non-tender Current Medications: Current Medications Sig/Azar Start time Last Medication Dose Route Stop Time Status Admin Cholecalciferol 1,000 IU DAILY 08/18 1000 AC 08/21 PO 0945 Docusate Sodium 100 MG BID 08/20 1258 AC 08/21 PO 0945 Heparin Sodium 5,000 UNIT Q8 08/19 1400 AC 08/21 (Porcine) SC 0616 Hydromorphone HCl 2 MG Q3P PRN 08/19 0900 AC 08/21 PO 0945 Ketorolac 15 MG Q6P PRN 08/19 1300 AC Tromethamine IV 08/24 1301 Lisinopril 5 MG DAILY 08/18 1000 AC 08/21 PO 0948 Magnesium Hydroxide 30 ML DAILY NEEDED PRN 08/20 1300 AC PO Morphine Sulfate 4 MG Q4P PRN 08/18 0030 AC 08/19 IV 0547 Morphine Sulfate 2 MG Q4P PRN 08/17 2300 AC IV Omeprazole 40 MG DAILY AC 08/18 0700 AC 08/21 PO 0616 Ondansetron HCl 4 MG Q6P PRN 08/17 2300 AC 08/20 IV 1234 Tramadol HCl 50 MG BID PRN 08/17 2215 AC 08/21 PO 0159 Results Last 24 Hrs Lab/Giovanni Results: Laboratory Tests 08/21/16 1330: Anion Gap 5, CBC w Diff NO MAN DIFF REQ, RBC 3.94 L, MCV 92.6, MCH 30.9, RDW 14.5, MPV 8.6, Gran % 60.6, Lymphocytes % 25.3, Monocytes % 7.7, Eosinophils % 5.9 H, Basophils % 0.5, Absolute Granulocytes 5.2, Absolute Lymphocytes 2.2, Absolute Monocytes 0.7 H, Absolute Eosinophils 0.5, Absolute Basophils 0, PUBS MCHC 33.3 DELIO DUNCAN,[facility] 08/21/16 1301: Attending MD Review Statement Attending Sign Off Attending Cosign Statement: I have: examined this patient, reviewed al EMR data, personally reviewd images, discussd w/resident/PA/ELECTRIC POWER SUPERINTENDENT, discussed mgmt plan w/aniya, discussed mgmt plan w/CM, discussed mgmt plan w/pt, agreed w/resident/PA/ELECTRIC POWER SUPERINTENDENT, amended to note. Other Findings: Patient seen and examined, overall feeling much better. She denies any complaints. Her pain is well controlled and her vital signs are stable. She hasn't had a bowel movement yet. She finally agreed for rehabilitation. Orthopedic team is planning to discharge her tomorrow. I would agree with checking her labs today as they have not been checked in last couple of days. From medical standpoint she is stable for discharge. Unless her labs look abnormal, there is no active medical issues. If her labs come back normal then medicine will sign off.
--- NOTE | 2016-08-21 07:50 | PN- Orthopedic ---
Subjective Subjective: Pain is controlled, no acute events overnight. She has been ambulating with therapy Core Measures/Miscellaneous Venous Thromboembolism VTE Risk Factors: Age > 40, Immobility, paresis VTE Contraindications: No Contraindications VTE Diagnosis: No VTE Type: NONE VTE Confirmed by (Test): NONE Beta Manish Is Beta Manish a Home Med? No Antibiotics Is Patient on Antibiotics? No
--- NOTE | 2016-08-21 07:57 | PN- Orthopedic ---
See Addendum Subjective Subjective: Patient comfortable, pain is controlled with by mouth Dilaudid. She expressed to me that she does not wish to be transferred to a care home facility. She states that she would rather sign out AGAINST MEDICAL ADVICE and feels as though she has enough help at home. Objective Vital Signs and I&Os Vital Signs Date Time Temp Pulse Resp B/P Pulse O2 O2 Flow FiO2 Ox Delivery Rate 08/21 0620 98.1 74 18 100/58 93 Room Air 08/20 2250 99.2 75 20 106/58 93 Room Air 08/20 1404 98.3 79 20 100/60 94 Room Air 08/20 1050 Room Air 08/20 1042 Room Air 08/20 0823 85 110/60 Intake & Output 08/21 0000 08/20 1600 08/20 0808/20 0000 08/19 1600 Intake Total 480 490 500 250 300 250 Output Total 250 400 400 250 300 200 Balance 230 90 100 0 0 50 Intake, IV 10 10 Intake, Oral 480 480 500 250 300 240 Output, Urine 250 400 400 250 300 200 Patient 175 lb Weight Physical Exam: Well-developed well-nourished no apparent distress. HEENT: Atraumatic, extraocular motion intact Neck: Supple, no lymphadenopathy Respiratory: No respiratory distress Extremities: No edema, no calf pain Minimal pain left greater trochanteric region left hip. Left upper extremity, sugar tong splint in place, fingers with moderate swelling although improved since last time I saw her. Finger range of motion is limited but intact, neurovascular intact distally. Neuro: Alert and oriented x3 Psych: Mood affect normal, normal memory normal judgment. Skin: Warm and dry, no rash on exposed skin Assessment/Plan Assessment/Plan Hospital day #5 status post fall, nondisplaced left hip trochanteric periprosthetic fracture and left wrist both bones fracture status post closed reduction and splinting. -Continue to mobilize with physical therapy, remained protected weightbearing on the left side with partial weightbearing using a roller walker, recommend platform walker for the left upper extremity. -Dilaudid for pain -Heparin for DVT prophylaxis -Patient expressed to me that she does not wish to go to a care home facility, states that she would sign out AGAINST MEDICAL ADVICE if that's we have recommended for her. And discussed with her that it is for her own safety so she does not have a fall and cause more significant injury that she goes to a care home facility. She verbalized understanding. She feels as though she has enough help at home to manage. I have discussed this with Dr. Ritchie will be speaking with the patient later today regarding further recommendations. Plan possibly to discharge to a care home facility today versus patient signing out AGAINST MEDICAL ADVICE in 1-2 days with home health services. Core Measures/Miscellaneous Venous Thromboembolism VTE Risk Factors: Age > 40, Immobility, paresis VTE Contraindications: No Contraindications VTE Diagnosis: No VTE Type: NONE VTE Confirmed by (Test): NONE Beta Manish Is Beta Manish a Home Med? No Antibiotics Is Patient on Antibiotics? No
[2016-08-21 13:56] LABS: ABSOLUTE BASOPHIL COUNT 0 /CUMM (0.0-0.2); ABSOLUTE EOSINOPHIL COUNT 0.5 /CUMM (0.0-0.7); ABSOLUTE GRANULOCYTE CT 5.2 /CUMM (1.4-6.5); ABSOLUTE LYMPH COUNT 2.2 /CUMM (1.2-3.4); ABSOLUTE MONOCYTE COUNT 0.7 /CUMM (0.10-0.60); BASOPHIL % 0.5 % (0.0-2.0); EOSINOPHIL % 5.9 % (0-5); GRANULOCYTE % 60.6 % (42.2-75.2); HEMATOCRIT 36.5 % (37-47); MEAN CORPUSCULAR HGB 30.9 PG (27.0-31.0); MEAN CORPUSCULAR HGB CONC 33.3 G/DL (33.0-37.0); MEAN CORPUSCULAR VOLUME 92.6 FL (81.0-99.0); MEAN PLATELET VOLUME 8.6 FL (7.4-10.4); PLATELET COUNT 240 /CUMM (130-400); RBC DISTRIBUTION WIDTH 14.5 % (11.5-14.5); RED BLOOD CELL CT 3.94 /CUMM (4.20-5.40); WHITE BLOOD CELL COUNT 8.6 /CUMM (4.8-10.8)
--- NOTE | 2016-08-21 14:22 | NUR ---
PHYSICAL THERAPY. Pt CURRENTLY MANOJ AT XRAY. PT WILL F/U APPROPRIATE.
[2016-08-21 14:35] VITALS: BP 120/68
--- NOTE | 2016-08-21 15:31 | RADIOLOGY REPORT ---
EXAMINATION: XR WRIST, LEFT CLINICAL INFORMATION: Status post closed fracture reduction COMPARISON: 08/17/2016 TECHNIQUE: Left wrist, 3 views FINDINGS: Bone detail is partially obscured by the overlying cast material. The major radial fracture fragments now appear reduced into near-anatomic position and mild palmar tilt of the radial articular surface is restored. Also, the ulnar styloid fragment appears reduced. There is 0.7 cm of ulna negative variance. Carpal bones are intact. There is [id number] osteoarthritis of the first carpometacarpal joint. IMPRESSION: 1. Significant improvement in positioning and alignment of distal radial and ulnar fracture fragments compared to 08/17/2016. 2. Osteoarthritis of the first carpometacarpal joint.
--- NOTE | 2016-08-21 15:35 | RADIOLOGY REPORT ---
EXAMINATION: XR HIP, LEFT CLINICAL INFORMATION: Reevaluate periprosthetic greater trochanteric fracture. COMPARISON: 08/17/2016 TECHNIQUE: Two views of the left hip. FINDINGS: The components of the left total hip arthroplasty are unchanged in position. The femoral head prosthesis is well centered within the acetabular cup which is stabilized by 2 acetabular screws. The greater trochanteric fracture fragment is in anatomic position. The lesser trochanter is unremarkable. There is no lucency identified around the femoral prosthesis to suggest hardware loosening. IMPRESSION: - The left greater trochanteric fragment remains in anatomic position. - Satisfactory positioning and alignment of the components of the total hip arthroplasty.
[2016-08-21 22:24] VITALS: BP 112/60
[2016-08-22 06:43] VITALS: BP 106/60
[2016-08-22] MEDS ORDERED: ULTRAM50 M1 PO (07:47)
--- NOTE | 2016-08-22 08:02 | PN- Orthopedic ---
See Addendum Subjective Subjective: Patient reporting no acute overnight events. With regard to pain, she states that her pain is well controlled when she has po dilaudid, however, she states that historically she is able to sleep better when she utilizes tramadol. She is requesting tramadol versus dilaudid at night, and dilaudid during day. She denies any chest pain, shortness of breath, and difficulty breathing. She denies nausea and vomitting. She has been oob, she has ambulated, and she has been able to sit in a chair. She is comfortable with the decision for her to go to [facility] today. Objective Vital Signs and I&Os Vital Signs Date Time Temp Pulse Resp B/P Pulse O2 O2 Flow FiO2 Ox Delivery Rate 08/22 0643 98.1 69 20 106/60 94 Room Air 08/21 2224 98.3 76 20 112/60 94 Room Air 08/21 1435 97.1 60 20 120/68 97 08/21 0948 85 122/70 Intake & Output 08/22 0800 08/22 0000 08/21 1600 08/21 0800 08/21 0000 08/20 1600 Intake Total 300 550 480 490 500 Output Total 150 250 250 400 400 Balance 150 300 230 90 100 Intake, IV 10 Intake, Oral 300 550 480 480 500 Number 1 Bowel Movements Output, Urine 150 250 250 400 400 Patient 175 lb Weight Physical Exam: General: Alert and oriented x3, no acute distress Cardiac: RRR, s1s2 Pulm: Normal respiratory effort, CTA Abdomen: Non-tender, non-distended Extremities: Moves all extremities. Distal sensations grossly intact. Motor intact bilateral upper and lower. Skin warm and well perfused. DP pulses palpable bilaterally. Bilateral calves soft and non-tender. Left wrist: Residual bruising to fingers, resolving. Swelling appears less than prior assessments. Sensations intact to all 5 fingers and to palm of hand. Motor intact to all 5 fingers. Capillary refill remains brisk to all 5 fingers. No discomfort with passive flexion and extension. Assessment/Plan Assessment/Plan This is a 81 year old female hospital day 4 s/p closed reduction of left wrist and conservative tx of left greater trochanteric periprosthetic fracture resulting from a fall on 08/17/2016. Wrist: Continue immobilization and elevation, non-weightbearing to left upper extremity Hip: Activity OOB, WBAT Pain: Dilaudid 2mg po q4-6 hr prn during day, Tramadol 50mg q6 hr prn at night Diet: Heart healthy, continue to advance as tolerated Bowel: Colace daily DVT ppx: Continue lovenox 40 daily Dispo planning: [facility], [place] Core Measures/Miscellaneous Venous Thromboembolism VTE Risk Factors: Age > 40, Immobility, paresis VTE Contraindications: No Contraindications VTE Diagnosis: No VTE Type: NONE VTE Confirmed by (Test): NONE Beta Manish Is Beta Manish a Home Med? No Antibiotics Is Patient on Antibiotics? No
[2016-08-22 10:54] VITALS: BP 110/60
[2016-08-22] MEDS ORDERED: DOCUSATE SODIU100 M3 PO (11:10)
[2016-08-22] MEDS ORDERED: HYDROMORPHONE HC2 M1 PO (11:10)
== END 2016-08-22 12:45 | DRG 562 ==
LOC: ENRESERVTM → ENRESERVDT → ERH 14:47 → 2NA 19:27 → ERHI 19:27 → ENPENDDIS 19:27 → 2NA 08-18 01:15
PROVIDERS: Physician Assistant; Physician Assistant Surgical; ADMIT Orthopaedic Surgery Sports Medicine
PROC: 0PSJXZZ Reposition Left Radius, External Approach (ICD-10-PCS; principal; 2016-08-18)
DX: S52.502A Unspecified fracture of the lower end of left radius, initial encounter for closed fracture (principal); S72.115A Nondisplaced fracture of greater trochanter of left femur, initial encounter for closed fracture; M97.02XA Periprosthetic fracture around internal prosthetic left hip joint, initial encounter; S52.202A Unspecified fracture of shaft of left ulna, initial encounter for closed fracture; M19.90 Unspecified osteoarthritis, unspecified site; I10 Essential (primary) hypertension; K21.9 Gastro-esophageal reflux disease without esophagitis; E03.9 Hypothyroidism, unspecified; W18.30XA Fall on same level, unspecified, initial encounter; Z91.81 History of falling; Y93.9 Activity, unspecified; Y92.531 Health care provider office as the place of occurrence of the external cause; R91.8 Other nonspecific abnormal finding of lung field; E55.9 Vitamin D deficiency, unspecified
CPT/HCPCS: 2NASP; ERO; 36415; 73100-LT; 73110-LT; 73502-LT; 81001; 93005; 93010; 96374; 96376; 97161-GP; 97530-GO; J0131; J1644; J1885; J2405; J7042